=== PATIENT | female | born 1960 | race Caucasian/White ===

== ENCOUNTER 2016-03-25 09:24 | Inpatient (IN) | payer OTHER ==
[~2016-03-25] VITALS: Ht 157.5 cm; Wt 115.4 kg
[2016-03-25] MEDS ORDERED: HYDR-305 PO (09:43)
[2016-03-25] MEDS ORDERED: ASPI-556 PO (09:46)
[2016-03-25] MEDS ORDERED: AMOX250C4 PO (09:46)
[2016-03-25] MEDS ORDERED: ATOR20TA86 PO (09:46)
[2016-03-25] MEDS ORDERED: AMIO200T44 PO (09:46)
[2016-03-25] MEDS ORDERED: LEVO125 PO (09:46)
[2016-03-25] MEDS ORDERED: INDO50 PO (09:46)
[2016-03-25] MEDS ORDERED: ALBU8HFA IH (09:52)
[2016-03-25] MEDS ORDERED: CLOP75 PO (09:52)
[2016-03-25] MEDS ORDERED: FURO40I IM (09:52)
[2016-03-25] MEDS ORDERED: ALLO300 PO (09:52)
[2016-03-25] MEDS ORDERED: TRIA0.252 PO (09:52)
[2016-03-25] MEDS ORDERED: ISOS30TA6 PO (09:52)
[2016-03-25] MEDS ORDERED: RANI150T7 PO (09:52)
[2016-03-25] MEDS ORDERED: CARV25 PO (09:52)
[2016-03-25] MEDS ORDERED: HYDR50 PO (09:52)
[2016-03-25] MEDS ORDERED: OMEP20 PO (09:52)
[2016-03-25] MEDS ORDERED: DOXY100C PO (09:52)
[2016-03-25] MEDS ORDERED: GLIP5 PO (09:52)
[2016-03-25] MEDS ORDERED: KDUR10 PO (09:52)
[2016-03-25] MEDS ORDERED: FUROSEMIDE 40 MG/4 ML VIAL IVP ONE (10:15)
[2016-03-25 10:33] LABS: BASOPHILS % (AUTO) 0.1 % (0.0-2.0); EOSINOPHILS % (AUTO) 0.8 % (1.0-6.0); HEMATOCRIT 45.8 % (36-46); HEMOGLOBIN 14.2 g/dL (12.0-16.0); LYMPHOCYTES # (AUTO) 1.4 K/uL (1.0-4.8); LYMPHOCYTES % (AUTO) 12.3 % (22.0-44.0); MEAN CORPUSCULAR HEMOGLOBIN 26.9 pg (26.0-34.0); MEAN CORPUSCULAR VOLUME 87 fL (80-100); MONOCYTES # (AUTO) 1.2 K/uL (0.1-1.0); MONOCYTES % (AUTO) 10.1 % (2.0-9.0); NEUTROPHILS # (AUTO) 8.9 K/uL (1.8-7.7); NEUTROPHILS % (AUTO) 76.7 % (40.0-70.0); PLATELET COUNT (AUTO) 245 K/uL (150-450); RED BLOOD CELL COUNT(AUTO) 5.28 MIL/uL (4.00-5.20); RED CELL DISTRIBUTION WIDTH 20.4 % (11.5-14.5); WHITE BLOOD COUNT (AUTO) 11.6 K/uL (4.5-11.0)
[2016-03-25 10:42] LABS: ANION GAP 9 mmol/L (8-16); CALCIUM, TOTAL 8.8 mg/dL (8.8-10.5); CARBON DIOXIDE 30 mmol/L (22-29); CHLORIDE 105 mmol/L (98-107); CREATININE 1.06 mg/dL (0.60-1.30); GLOMERULAR FILTR. RATE CALC 54 mL/min (>60); POTASSIUM 3.9 mmol/L (3.5-5.1); PROTHROMBIN TIME 10.6 SEC (9.4-11.6); SODIUM SERUM 144 mmol/L (136-145); UREA NITROGEN, BLOOD 38 mg/dL (7-18)
[2016-03-25 10:47] LABS: APPEARANCE,URINE CLEAR (CLEAR); GLUCOSE, URINE (UA) NEGATIVE (NEGATIVE); KETONES,URINE NEGATIVE (NEGATIVE); LEUKOCYTE ESTERASE ,URINE NEGATIVE (NEGATIVE); OCCULT BLOOD,URINE NEGATIVE (NEGATIVE); PROTEIN,URINE NEGATIVE (NEGATIVE)
[2016-03-25 10:49] LABS: ALANINE AMINOTRANSFERASE 63 U/L (12-78); ALBUMIN 3.1 g/dL (3.4-5.0); ASPARTATE AMINOTRANSFERASE 33 U/L (15-37); BILIRUBIN,TOTAL 0.5 mg/dL (0.1-1.0); CREATINE KINASE, TOTAL 40 U/L (26-192); TOTAL PROTEIN, SERUM 6.1 g/dL (6.4-8.2)
[2016-03-25 10:49] LABS: ADD UA MICROSCOPIC NO
[2016-03-25 11:03] LABS: B-TYPE NATRIURETIC PEPTIDE 1800 pg/mL (0-100)
[2016-03-25] MEDS ORDERED: MethylPREDNISolone SOD SUCC 125 MG/2 ML VIAL IVP ONE (11:15)
[2016-03-25] MEDS ORDERED: AMIODARONE HCL 200 MG TABLET PO ONE ×2 (12:15→21:15)
[2016-03-25] MEDS ORDERED: HYDROCODONE/ACETAMINOPHEN 5-325 MG TABLET PO ONE (12:45)
[2016-03-25] MEDS ORDERED: MONT10TA21 PO (16:07)
[2016-03-25] MEDS ORDERED: SIMV-261 PO (16:07)
[2016-03-25 16:09] VITALS: BP 156/113
[2016-03-25] MEDS ORDERED: FURO40 PO (17:12)
[2016-03-25] MEDS ORDERED: ONDANSETRON HCL 4 MG/2 ML VIAL IVP PRN (18:45)
[2016-03-25] MEDS ORDERED: ACETAMINOPHEN 325 MG TABLET PO PRN (18:45)
[2016-03-25] MEDS ORDERED: DIGOXIN 250 MCG/ML 2 ML AMP IVP ONE (18:45)
[2016-03-25] MEDS ORDERED: DEXTROSE 50%-WATER 25 GM/50 ML SYRINGE IVP PRN (18:45)
[2016-03-25] MEDS: OxyCODONE HCL/ACETAMINOPHEN 5-325 MG TABLET PO PRN ×2 (19:15→23:16)
[2016-03-25 19:22] VITALS: BP 139/94
[2016-03-25] MEDS: ALBUTEROL SULFATE HFA 90 MCG/PUFF 8 GM INHALER IH SCH ×2 (20:10→23:16)
[2016-03-25 20:31] LABS: GLUCOSE,POINT OF CARE 260 MG/DL (70-110)
[2016-03-25 21:15] VITALS: BP 125/97
[2016-03-25] MEDS: CARVEDILOL 25 MG TABLET PO SCH (21:16)
[2016-03-25] MEDS: FUROSEMIDE 40 MG/4 ML VIAL IVP SCH (21:16)
[2016-03-25] MEDS: MONTELUKAST SODIUM 10 MG TABLET PO SCH (21:17)
[2016-03-25] MEDS: ATORVASTATIN CALCIUM 20 MG TABLET PO SCH (21:17)
[2016-03-25] MEDS: INSULIN ASPART 100 UNITS/ML SQ PRN (21:25)
[2016-03-25 22:03] VITALS: BP 157/98
[2016-03-25] MEDS: HydrALAZINE HCL 50 MG TABLET PO SCH (22:04)
[2016-03-25] MEDS: HEPARIN SODIUM,PORCINE 5,000 UNITS/ML VIAL SQ SCH (23:16)
[2016-03-26] VITALS (10 sets, daily range): BP systolic 101–158; BP diastolic 60–103
[2016-03-26] MEDS: ZOLPIDEM TARTRATE 5 MG TABLET PO PRN ×2 (00:54→23:43)
[2016-03-26] MEDS: ALBUTEROL SULFATE HFA 90 MCG/PUFF 8 GM INHALER IH SCH ×4 (06:15→23:22)
[2016-03-26] MEDS: LEVOTHYROXINE SODIUM 50 MCG TABLET PO SCH (06:15)
[2016-03-26 06:26] LABS: GLUCOSE COMMENT 1 Received Meds; GLUCOSE,POINT OF CARE 163 MG/DL (70-110)
[2016-03-26] MEDS: GlipiZIDE 5 MG TABLET PO SCH (06:46)
[2016-03-26] MEDS: INSULIN ASPART 100 UNITS/ML SQ PRN ×3 (06:47→22:29)
[2016-03-26] MEDS: HydrALAZINE HCL 50 MG TABLET PO SCH ×3 (08:15→22:19)
[2016-03-26] MEDS: HEPARIN SODIUM,PORCINE 5,000 UNITS/ML VIAL SQ SCH ×3 (08:15→23:22)
[2016-03-26] MEDS: ASPIRIN 81 MG EC TABLET PO SCH (08:15)
[2016-03-26] MEDS: CARVEDILOL 25 MG TABLET PO SCH ×2 (08:15→22:19)
[2016-03-26] MEDS: ISOSORBIDE MONONITRATE 60 MG ER TABLET PO SCH (08:15)
[2016-03-26] MEDS: FUROSEMIDE 40 MG/4 ML VIAL IVP SCH ×2 (08:15→22:19)
[2016-03-26] MEDS: PANTOPRAZOLE SODIUM 40 MG DR TABLET PO SCH (08:16)
[2016-03-26] MEDS: AMIODARONE HCL 200 MG TABLET PO SCH (08:16)
[2016-03-26] MEDS: CLOPIDOGREL BISULFATE 75 MG TABLET PO SCH (08:16)
[2016-03-26] MEDS: ALLOPURINOL 300 MG TABLET PO SCH (08:17)
[2016-03-26] MEDS: SIMVASTATIN 40 MG TABLET PO SCH (08:17)
[2016-03-26] MEDS: OxyCODONE HCL/ACETAMINOPHEN 5-325 MG TABLET PO PRN ×3 (10:44→22:20)
[2016-03-26 19:16] LABS: GLUCOSE,POINT OF CARE 130 MG/DL (70-110)
[2016-03-26] MEDS: ATORVASTATIN CALCIUM 20 MG TABLET PO SCH (22:19)
[2016-03-26] MEDS: MONTELUKAST SODIUM 10 MG TABLET PO SCH (22:19)
[2016-03-27] VITALS (11 sets, daily range): BP systolic 107–153; BP diastolic 57–105
[2016-03-27] MEDS: OxyCODONE HCL/ACETAMINOPHEN 5-325 MG TABLET PO PRN ×3 (02:40→10:31)
[2016-03-27] MEDS: LEVOTHYROXINE SODIUM 50 MCG TABLET PO SCH (06:39)
[2016-03-27] MEDS: ALBUTEROL SULFATE HFA 90 MCG/PUFF 8 GM INHALER IH SCH ×3 (06:39→18:32)
[2016-03-27] MEDS: GlipiZIDE 5 MG TABLET PO SCH (06:42)
[2016-03-27] MEDS: INSULIN ASPART 100 UNITS/ML SQ PRN ×4 (06:46→21:10)
[2016-03-27 07:06] LABS: BILIRUBIN,TOTAL 0.3 mg/dL (0.1-1.0); CALCIUM, TOTAL 8.5 mg/dL (8.8-10.5); CREATININE 1.49 mg/dL (0.60-1.30); TOTAL PROTEIN, SERUM 5.8 g/dL (6.4-8.2)
[2016-03-27 07:09] LABS: EOSINOPHILS # (AUTO) 0.14 K/uL (0.00-0.70); EOSINOPHILS % (AUTO) 1.36 % (1.0-6.0); HEMATOCRIT 42.6 % (36-46); HEMOGLOBIN 13.5 g/dL (12.0-16.0); LYMPHOCYTES # (AUTO) 1.5 K/uL (1.0-4.8); LYMPHOCYTES % (AUTO) 14.2 % (22.0-44.0); MEAN CORPUSCULAR HEMOGLOBIN 27.2 pg (26.0-34.0); MEAN CORPUSCULAR HGB CONC 31.8 G/dL (31.0-37.0); MEAN CORPUSCULAR VOLUME 86 fL (80-100); MONOCYTES # (AUTO) 0.7 K/uL (0.1-1.0); MONOCYTES % (AUTO) 6.2 % (2.0-9.0); NEUTROPHILS # (AUTO) 8.3 K/uL (1.8-7.7); NEUTROPHILS % (AUTO) 78.3 % (40.0-70.0); PLATELET COUNT (AUTO) 274 K/uL (150-450); RED BLOOD CELL COUNT(AUTO) 4.97 MIL/uL (4.00-5.20); RED CELL DISTRIBUTION WIDTH 20.2 % (11.5-14.5); WHITE BLOOD COUNT (AUTO) 10.6 K/uL (4.5-11.0)
[2016-03-27] MEDS: HEPARIN SODIUM,PORCINE 5,000 UNITS/ML VIAL SQ SCH ×2 (08:00→16:00)
[2016-03-27 09:11] LABS: RBC MORPHOLOGY COMMENT ABNORMAL RBC MORPH
[2016-03-27] MEDS: FUROSEMIDE 40 MG/4 ML VIAL IVP SCH (10:25)
[2016-03-27] MEDS: CARVEDILOL 25 MG TABLET PO SCH ×2 (10:26→21:18)
[2016-03-27] MEDS: HydrALAZINE HCL 50 MG TABLET PO SCH ×3 (10:26→21:18)
[2016-03-27] MEDS: ISOSORBIDE MONONITRATE 60 MG ER TABLET PO SCH (10:27)
[2016-03-27] MEDS: ASPIRIN 81 MG EC TABLET PO SCH (10:27)
[2016-03-27] MEDS: AMIODARONE HCL 200 MG TABLET PO SCH (10:27)
[2016-03-27] MEDS: PANTOPRAZOLE SODIUM 40 MG DR TABLET PO SCH (10:28)
[2016-03-27] MEDS: ALLOPURINOL 300 MG TABLET PO SCH (10:28)
[2016-03-27] MEDS: SIMVASTATIN 40 MG TABLET PO SCH (10:28)
[2016-03-27] MEDS: CLOPIDOGREL BISULFATE 75 MG TABLET PO SCH (10:28)
[2016-03-27] MEDS ORDERED: ISOS60TA4 PO (15:17)
[2016-03-27] MEDS ORDERED: LEVO175T9 PO (15:17)
[2016-03-27] MEDS: OxyCODONE HCL/ACETAMINOPHEN 10-325 MG TABLET PO PRN ×2 (16:22→21:20)
[2016-03-27] MEDS: ALBUTEROL SULFATE 2.5 MG/0.5 ML NEB SOLUTION NEB SCH ×2 (19:47→23:24)
[2016-03-27] MEDS: IPRATROPIUM BROMIDE 0.5 MG/2.5 ML NEB SOLUTION NEB SCH ×2 (19:47→23:24)
[2016-03-27 21:06] LABS: GLUCOSE,POINT OF CARE 95 MG/DL (70-110)
[2016-03-27 21:06] LABS: GLUCOSE,POINT OF CARE 101 MG/DL (70-110)
[2016-03-27] MEDS: ATORVASTATIN CALCIUM 20 MG TABLET PO SCH (21:18)
[2016-03-27] MEDS: MONTELUKAST SODIUM 10 MG TABLET PO SCH (21:18)
[2016-03-27] MEDS ORDERED: 0.9% SODIUM CHLORIDE 10 ML SYRINGE IVP PRN (23:30)
[2016-03-28] MEDS: HEPARIN SODIUM,PORCINE 5,000 UNITS/ML VIAL SQ SCH ×3 (00:39→18:14)
[2016-03-28] MEDS: ALBUTEROL SULFATE HFA 90 MCG/PUFF 8 GM INHALER IH SCH ×5 (00:39→23:21)
[2016-03-28] MEDS: ZOLPIDEM TARTRATE 5 MG TABLET PO PRN ×2 (00:40→21:32)
[2016-03-28] MEDS: OxyCODONE HCL/ACETAMINOPHEN 5-325 MG TABLET PO PRN (02:23)
[2016-03-28] MEDS: IPRATROPIUM BROMIDE 0.5 MG/2.5 ML NEB SOLUTION NEB SCH ×6 (03:04→23:30)
[2016-03-28] MEDS: ALBUTEROL SULFATE 2.5 MG/0.5 ML NEB SOLUTION NEB SCH ×6 (03:04→23:30)
[2016-03-28 04:11] VITALS: BP 130/69
[2016-03-28] MEDS: INSULIN ASPART 100 UNITS/ML SQ PRN (06:20)
[2016-03-28] MEDS: GlipiZIDE 5 MG TABLET PO SCH (06:46)
[2016-03-28] MEDS: LEVOTHYROXINE SODIUM 50 MCG TABLET PO SCH (06:47)
[2016-03-28 07:18] VITALS: BP 134/77
[2016-03-28] MEDS: OxyCODONE HCL/ACETAMINOPHEN 10-325 MG TABLET PO PRN ×4 (07:47→21:32)
[2016-03-28] MEDS: ASPIRIN 81 MG EC TABLET PO SCH (07:48)
[2016-03-28] MEDS: CLOPIDOGREL BISULFATE 75 MG TABLET PO SCH (07:48)
[2016-03-28] MEDS: AMIODARONE HCL 200 MG TABLET PO SCH (07:48)
[2016-03-28] MEDS: PANTOPRAZOLE SODIUM 40 MG DR TABLET PO SCH (07:48)
[2016-03-28] MEDS: FUROSEMIDE 40 MG/4 ML VIAL IVP SCH (07:48)
[2016-03-28] MEDS: ALLOPURINOL 300 MG TABLET PO SCH (07:48)
[2016-03-28] MEDS: CARVEDILOL 25 MG TABLET PO SCH ×2 (07:48→20:08)
[2016-03-28] MEDS: HydrALAZINE HCL 50 MG TABLET PO SCH ×3 (07:48→20:08)
[2016-03-28 08:37] LABS: GLUCOSE,POINT OF CARE 72 MG/DL (70-110)
[2016-03-28 08:37] LABS: GLUCOSE,POINT OF CARE 96 MG/DL (70-110)
[2016-03-28 08:37] LABS: GLUCOSE,POINT OF CARE 92 MG/DL (70-110)
[2016-03-28 08:38] LABS: GLUCOSE,POINT OF CARE 110 MG/DL (70-110)
[2016-03-28 08:38] LABS: GLUCOSE,POINT OF CARE 126 MG/DL (70-110)
[2016-03-28 08:38] LABS: GLUCOSE,POINT OF CARE 82 MG/DL (70-110)
[2016-03-28 08:44] LABS: BILIRUBIN,TOTAL 0.2 mg/dL (0.1-1.0); CALCIUM, TOTAL 8.5 mg/dL (8.8-10.5); CREATININE 1.51 mg/dL (0.60-1.30); POTASSIUM 4.4 mmol/L (3.5-5.1); TOTAL PROTEIN, SERUM 5.6 g/dL (6.4-8.2)
[2016-03-28 11:15] VITALS: BP 120/68
[2016-03-28] MEDS: ISOSORBIDE MONONITRATE 60 MG ER TABLET PO SCH (11:56)
[2016-03-28 12:01] LABS: GLUCOSE,POINT OF CARE 72 MG/DL (70-110)
[2016-03-28 15:10] VITALS: BP 122/72
[2016-03-28] MEDS: SIMVASTATIN 40 MG TABLET PO SCH (18:13)
[2016-03-28 19:58] VITALS: BP 133/89
[2016-03-28] MEDS: ATORVASTATIN CALCIUM 20 MG TABLET PO SCH (20:08)
[2016-03-28] MEDS: MONTELUKAST SODIUM 10 MG TABLET PO SCH (21:32)
[2016-03-28 23:55] VITALS: BP 140/70
[2016-03-29] VITALS (7 sets, daily range): BP systolic 114–168; BP diastolic 68–98
[2016-03-29] MEDS: OxyCODONE HCL/ACETAMINOPHEN 10-325 MG TABLET PO PRN ×4 (02:24→20:59)
[2016-03-29] MEDS: ALBUTEROL SULFATE 2.5 MG/0.5 ML NEB SOLUTION NEB SCH (02:58)
[2016-03-29] MEDS: IPRATROPIUM BROMIDE 0.5 MG/2.5 ML NEB SOLUTION NEB SCH ×7 (02:58→23:23)
[2016-03-29] MEDS: ALBUTEROL SULFATE HFA 90 MCG/PUFF 8 GM INHALER IH SCH ×4 (05:51→23:35)
[2016-03-29] MEDS: LEVOTHYROXINE SODIUM 50 MCG TABLET PO SCH (05:52)
[2016-03-29] MEDS: GlipiZIDE 5 MG TABLET PO SCH (05:52)
[2016-03-29 07:56] LABS: CREATININE 1.28 mg/dL (0.60-1.30); POTASSIUM 4.2 mmol/L (3.5-5.1)
[2016-03-29] MEDS: FUROSEMIDE 40 MG/4 ML VIAL IVP SCH (09:03)
[2016-03-29] MEDS: HydrALAZINE HCL 50 MG TABLET PO SCH ×3 (09:03→20:59)
[2016-03-29] MEDS: SIMVASTATIN 40 MG TABLET PO SCH (09:03)
[2016-03-29] MEDS: HEPARIN SODIUM,PORCINE 5,000 UNITS/ML VIAL SQ SCH ×4 (09:03→23:35)
[2016-03-29] MEDS: PANTOPRAZOLE SODIUM 40 MG DR TABLET PO SCH (09:04)
[2016-03-29] MEDS: AMIODARONE HCL 200 MG TABLET PO SCH ×2 (09:04→20:59)
[2016-03-29] MEDS: CARVEDILOL 25 MG TABLET PO SCH ×2 (09:04→20:59)
[2016-03-29] MEDS: ALLOPURINOL 300 MG TABLET PO SCH (09:04)
[2016-03-29] MEDS: ISOSORBIDE MONONITRATE 60 MG ER TABLET PO SCH (09:04)
[2016-03-29] MEDS: CLOPIDOGREL BISULFATE 75 MG TABLET PO SCH (09:04)
[2016-03-29] MEDS: INSULIN ASPART 100 UNITS/ML SQ PRN (12:20)
[2016-03-29] MEDS: APIXABAN 2.5 MG TABLET PO SCH ×2 (12:22→20:59)
[2016-03-29 17:31] LABS: GLUCOSE,POINT OF CARE 71 MG/DL (70-110)
[2016-03-29 17:36] LABS: GLUCOSE,POINT OF CARE 92 MG/DL (70-110)
[2016-03-29 17:37] LABS: GLUCOSE,POINT OF CARE 102 MG/DL (70-110)
[2016-03-29] MEDS: OxyCODONE HCL/ACETAMINOPHEN 5-325 MG TABLET PO PRN (18:31)
[2016-03-29] MEDS: ATORVASTATIN CALCIUM 20 MG TABLET PO SCH (20:59)
[2016-03-29] MEDS: MONTELUKAST SODIUM 10 MG TABLET PO SCH (20:59)
[2016-03-29] MEDS: ZOLPIDEM TARTRATE 5 MG TABLET PO PRN (23:37)
[2016-03-30 00:10] VITALS: BP 132/86
[2016-03-30 02:11] LABS: GLUCOSE,POINT OF CARE 121 MG/DL (70-110)
[2016-03-30 02:11] LABS: GLUCOSE,POINT OF CARE 72 MG/DL (70-110)
[2016-03-30 02:11] LABS: GLUCOSE COMMENT 1 Received Meds; GLUCOSE,POINT OF CARE 143 MG/DL (70-110)
[2016-03-30 02:11] LABS: GLUCOSE,POINT OF CARE 66 MG/DL (70-110)
[2016-03-30] MEDS: IPRATROPIUM BROMIDE 0.5 MG/2.5 ML NEB SOLUTION NEB SCH ×6 (02:31→23:00)
[2016-03-30] MEDS: OxyCODONE HCL/ACETAMINOPHEN 10-325 MG TABLET PO PRN ×3 (03:40→16:25)
[2016-03-30 05:00] VITALS: BP 133/78
[2016-03-30] MEDS: GlipiZIDE 5 MG TABLET PO SCH (06:00)
[2016-03-30] MEDS: ALBUTEROL SULFATE HFA 90 MCG/PUFF 8 GM INHALER IH SCH ×2 (06:00→11:43)
[2016-03-30] MEDS: LEVOTHYROXINE SODIUM 50 MCG TABLET PO SCH (06:03)
[2016-03-30 06:41] LABS: BASOPHILS # (AUTO) 0.04 K/uL (0.00-0.20); BASOPHILS % (AUTO) 0.5 % (0.0-2.0); EOSINOPHILS # (AUTO) 0.22 K/uL (0.00-0.70); EOSINOPHILS % (AUTO) 2.49 % (1.0-6.0); HEMATOCRIT 43.3 % (36-46); HEMOGLOBIN 13.5 g/dL (12.0-16.0); LYMPHOCYTES # (AUTO) 1.3 K/uL (1.0-4.8); LYMPHOCYTES % (AUTO) 15.2 % (22.0-44.0); MEAN CORPUSCULAR HGB CONC 31.2 G/dL (31.0-37.0); MEAN CORPUSCULAR VOLUME 87 fL (80-100); MONOCYTES # (AUTO) 0.9 K/uL (0.1-1.0); MONOCYTES % (AUTO) 10.6 % (2.0-9.0); NEUTROPHILS # (AUTO) 6.2 K/uL (1.8-7.7); NEUTROPHILS % (AUTO) 71.3 % (40.0-70.0); PLATELET COUNT (AUTO) 217 K/uL (150-450); RED CELL DISTRIBUTION WIDTH 20.6 % (11.5-14.5); WHITE BLOOD COUNT (AUTO) 8.7 K/uL (4.5-11.0)
[2016-03-30 06:46] LABS: GLUCOSE,POINT OF CARE 101 MG/DL (70-110)
[2016-03-30 07:15] LABS: ALBUMIN 2.9 g/dL (3.4-5.0); BILIRUBIN,TOTAL 0.2 mg/dL (0.1-1.0); CREATININE 1.57 mg/dL (0.60-1.30); MAGNESIUM 2.1 mg/dL (1.80-2.40); POTASSIUM 4.3 mmol/L (3.5-5.1); TOTAL PROTEIN, SERUM 5.9 g/dL (6.4-8.2)
[2016-03-30 08:26] VITALS: BP 137/84
[2016-03-30] MEDS: HydrALAZINE HCL 50 MG TABLET PO SCH ×2 (08:36→16:23)
[2016-03-30] MEDS: PANTOPRAZOLE SODIUM 40 MG DR TABLET PO SCH (08:36)
[2016-03-30] MEDS: HEPARIN SODIUM,PORCINE 5,000 UNITS/ML VIAL SQ SCH ×2 (08:36→16:00)
[2016-03-30] MEDS: APIXABAN 2.5 MG TABLET PO SCH (08:36)
[2016-03-30] MEDS: FUROSEMIDE 40 MG/4 ML VIAL IVP SCH (08:36)
[2016-03-30] MEDS: ALLOPURINOL 300 MG TABLET PO SCH (08:36)
[2016-03-30] MEDS: CARVEDILOL 25 MG TABLET PO SCH (08:36)
[2016-03-30] MEDS: AMIODARONE HCL 200 MG TABLET PO SCH (08:36)
[2016-03-30] MEDS: ISOSORBIDE MONONITRATE 60 MG ER TABLET PO SCH (08:36)
[2016-03-30] MEDS: SIMVASTATIN 40 MG TABLET PO SCH (08:36)
[2016-03-30] MEDS: CLOPIDOGREL BISULFATE 75 MG TABLET PO SCH (08:36)
[2016-03-30 11:02] LABS: RBC MORPHOLOGY COMMENT ABNORMAL RBC MORPH
[2016-03-30 11:22] VITALS: BP 108/66
[2016-03-30] MEDS ORDERED: AMIO200T44 PO (13:19)
[2016-03-30] MEDS ORDERED: APIX2.5T PO (13:26)
[2016-03-30] MEDS ORDERED: CEPH-582 PO (13:28)
[2016-03-30 15:06] LABS: GLUCOSE,POINT OF CARE 79 MG/DL (70-110)
[2016-03-30 16:19] VITALS: BP 129/75
[2016-03-31] MEDS: IPRATROPIUM BROMIDE 0.5 MG/2.5 ML NEB SOLUTION NEB SCH (03:00)
== END 2016-03-30 18:30 | disposition home or self-care (01) | DRG 194 ==
LOC: EMS 09:24 → 5S 15:05
PROVIDERS: ADMIT Hospitalist; ATTEND Hospitalist
DX: I11.0 Hypertensive heart disease with heart failure (principal); N17.9 Acute kidney failure, unspecified; I42.9 Cardiomyopathy, unspecified; Z68.42 Body mass index [BMI] 45.0-49.9, adult; E11.42 Type 2 diabetes mellitus with diabetic polyneuropathy; I50.23 Acute on chronic systolic (congestive) heart failure; J44.9 Chronic obstructive pulmonary disease, unspecified; I25.10 Atherosclerotic heart disease of native coronary artery without angina pectoris; E78.5 Hyperlipidemia, unspecified; E03.9 Hypothyroidism, unspecified; E66.01 Morbid (severe) obesity due to excess calories; J45.909 Unspecified asthma, uncomplicated; I48.0 Paroxysmal atrial fibrillation; M19.90 Unspecified osteoarthritis, unspecified site; F17.210 Nicotine dependence, cigarettes, uncomplicated; Z88.8 Allergy status to other drugs, medicaments and biological substances; Z79.899 Other long term (current) drug therapy; Z79.02 Long term (current) use of antithrombotics/antiplatelets; Z79.82 Long term (current) use of aspirin; Z79.891 Long term (current) use of opiate analgesic; Z95.5 Presence of coronary angioplasty implant and graft; Z91.14 Patient's other noncompliance with medication regimen
CPT/HCPCS: 73521; 73700; 82962; 83735; 87081; 93005; 93306; 93970; 94640; 96374; 96375; 99285; J1160; J1644; J1940; J2930; J3535

== ENCOUNTER 2016-04-02 11:09 | Inpatient (IN) | payer OTHER ==
[~2016-04-02] VITALS: Ht 167.6 cm; Wt 115.2 kg
[~2016-04-02 11:09] MED LIST: ALBU8HFA IH; ALLO300 PO; AMIO200T44 PO; APIX2.5T PO; ATOR20TA86 PO; CARV25 PO; CEPH-582 PO; CLOP75 PO; FURO40 PO; GLIP5 PO; HYDR-305 PO; HYDR50 PO; INDO50 PO; ISOS60TA4 PO; KDUR10 PO; LEVO175T9 PO; MONT10TA21 PO; OMEP20 PO; RANI150T7 PO; SIMV-261 PO; TRIA0.252 PO
[2016-04-02 11:26] LABS: GLUCOSE,POINT OF CARE 89 MG/DL (70-110)
[2016-04-02 12:36] LABS: BASOPHILS % (AUTO) 0.3 % (0.0-2.0); EOSINOPHILS % (AUTO) 1.5 % (1.0-6.0); LYMPHOCYTES # (AUTO) 1.6 K/uL (1.0-4.8); LYMPHOCYTES % (AUTO) 14.1 % (22.0-44.0); MEAN CORPUSCULAR HEMOGLOBIN 26.9 pg (26.0-34.0); MEAN CORPUSCULAR HGB CONC 30.9 G/dL (31.0-37.0); MEAN CORPUSCULAR VOLUME 87 fL (80-100); MONOCYTES # (AUTO) 1.6 K/uL (0.1-1.0); MONOCYTES % (AUTO) 14.5 % (2.0-9.0); NEUTROPHILS # (AUTO) 7.7 K/uL (1.8-7.7); NEUTROPHILS % (AUTO) 69.6 % (40.0-70.0); PLATELET COUNT (AUTO) 218 K/uL (150-450); RED BLOOD CELL COUNT(AUTO) 4.84 MIL/uL (4.00-5.20); RED CELL DISTRIBUTION WIDTH 20.9 % (11.5-14.5); WHITE BLOOD COUNT (AUTO) 11.1 K/uL (4.5-11.0)
[2016-04-02] MEDS ORDERED: FUROSEMIDE 40 MG/4 ML VIAL IVP ONE (12:45)
[2016-04-02] MEDS ORDERED: 0.9% SODIUM CHLORIDE 5 ML NEB SOLUTION NEB ONE ×3 (12:45→13:41)
[2016-04-02] MEDS ORDERED: MethylPREDNISolone SOD SUCC 125 MG/2 ML VIAL IVP ONE (12:45)
[2016-04-02] MEDS ORDERED: ALBUTEROL SULFATE 2.5 MG/0.5 ML NEB SOLUTION NEB ONE (12:45)
[2016-04-02] MEDS ORDERED: IPRATROPIUM BROMIDE 0.5 MG/2.5 ML NEB SOLUTION NEB ONE ×2 (12:45→13:30)
[2016-04-02 12:47] LABS: ANION GAP 3 mmol/L (8-16); CALCIUM, TOTAL 8.6 mg/dL (8.8-10.5); CARBON DIOXIDE 35 mmol/L (22-29); CHLORIDE 102 mmol/L (98-107); CREATININE 1.46 mg/dL (0.60-1.30); GLOMERULAR FILTR. RATE CALC 37 mL/min (>60); POTASSIUM 4.1 mmol/L (3.5-5.1); PROTHROMBIN TIME 10.1 SEC (9.4-11.6); SODIUM SERUM 140 mmol/L (136-145); UREA NITROGEN, BLOOD 29 mg/dL (7-18)
[2016-04-02 12:52] LABS: RBC MORPHOLOGY COMMENT ABNORMAL RBC MORPH
[2016-04-02 12:57] LABS: B-TYPE NATRIURETIC PEPTIDE 1100 pg/mL (0-100)
[2016-04-02 13:00] LABS: ALANINE AMINOTRANSFERASE 57 U/L (12-78); ASPARTATE AMINOTRANSFERASE 44 U/L (15-37); BILIRUBIN,TOTAL 0.3 mg/dL (0.1-1.0); CREATINE KINASE, TOTAL 35 U/L (26-192); TOTAL PROTEIN, SERUM 6.3 g/dL (6.4-8.2)
[2016-04-02] MEDS ORDERED: ONDANSETRON HCL 4 MG/2 ML VIAL IVP ONE (13:30)
[2016-04-02] MEDS ORDERED: ALBUTEROL SULFATE 5 MG/ML 20 ML NEB SOLN [BULK] NEB ONE (13:30)
[2016-04-02] MEDS ORDERED: MORPHINE SULFATE 4 MG/ML SYRINGE IVP ONE (13:30)
[2016-04-02] MEDS ORDERED: ONDANSETRON HCL 4 MG/2 ML VIAL IVP PRN (13:45)
[2016-04-02] MEDS ORDERED: ACETAMINOPHEN 325 MG TABLET PO PRN (13:45)
[2016-04-02] MEDS ORDERED: DEXTROSE 50%-WATER 25 GM/50 ML SYRINGE IVP PRN (13:45)
[2016-04-02 14:03] LABS: APPEARANCE,URINE CLEAR (CLEAR); GLUCOSE, URINE (UA) NEGATIVE (NEGATIVE); KETONES,URINE NEGATIVE (NEGATIVE); LEUKOCYTE ESTERASE ,URINE NEGATIVE (NEGATIVE); OCCULT BLOOD,URINE NEGATIVE (NEGATIVE); PH,URINE 7.5 (5.0-8.0); PROTEIN,URINE TRACE (NEGATIVE)
[2016-04-02 14:06] LABS: ADD UA MICROSCOPIC NO
[2016-04-02 15:49] VITALS: BP 147/75
[2016-04-02] MEDS: INDOMETHACIN 50 MG CAPSULE PO SCH ×2 (17:50→21:54)
[2016-04-02] MEDS: OxyCODONE HCL/ACETAMINOPHEN 5-325 MG TABLET PO PRN ×2 (17:50→21:54)
[2016-04-02] MEDS: HydrALAZINE HCL 50 MG TABLET PO SCH ×2 (17:50→21:54)
[2016-04-02] MEDS: INSULIN ASPART 100 UNITS/ML SQ PRN ×2 (17:58→22:01)
[2016-04-02 19:17] VITALS: BP 150/88
[2016-04-02] MEDS ORDERED: ATORVASTATIN CALCIUM 20 MG TABLET PO SCH (21:00)
[2016-04-02] MEDS: CARVEDILOL 25 MG TABLET PO SCH (21:54)
[2016-04-02] MEDS: AMIODARONE HCL 200 MG TABLET PO SCH (21:54)
[2016-04-02] MEDS: ZOLPIDEM TARTRATE 10 MG TABLET PO PRN (21:54)
[2016-04-02] MEDS: POTASSIUM CHLORIDE 10 MEQ ER TABLET PO SCH (21:54)
[2016-04-02] MEDS: FUROSEMIDE 40 MG/4 ML VIAL IVP SCH (21:54)
[2016-04-02] MEDS: MONTELUKAST SODIUM 10 MG TABLET PO SCH (21:54)
[2016-04-02] MEDS: APIXABAN 2.5 MG TABLET PO SCH (21:54)
[2016-04-02 23:55] VITALS: BP 160/86
[2016-04-03] MEDS: OxyCODONE HCL/ACETAMINOPHEN 5-325 MG TABLET PO PRN ×5 (03:09→22:53)
[2016-04-03 04:57] VITALS: BP 130/83
[2016-04-03] MEDS: GlipiZIDE 5 MG TABLET PO SCH (06:00)
[2016-04-03] MEDS: LEVOTHYROXINE SODIUM 50 MCG TABLET PO SCH (06:02)
[2016-04-03] MEDS: INSULIN ASPART 100 UNITS/ML SQ PRN ×2 (06:14→12:16)
[2016-04-03 07:15] VITALS: BP 138/67
[2016-04-03] MEDS: FUROSEMIDE 40 MG/4 ML VIAL IVP SCH ×2 (08:32→20:35)
[2016-04-03] MEDS: APIXABAN 2.5 MG TABLET PO SCH ×2 (08:32→20:34)
[2016-04-03] MEDS: PANTOPRAZOLE SODIUM 40 MG DR TABLET PO SCH (08:32)
[2016-04-03] MEDS: AMIODARONE HCL 200 MG TABLET PO SCH ×2 (08:32→20:34)
[2016-04-03] MEDS: HydrALAZINE HCL 50 MG TABLET PO SCH ×3 (08:33→20:33)
[2016-04-03] MEDS: INDOMETHACIN 50 MG CAPSULE PO SCH ×3 (08:33→20:34)
[2016-04-03] MEDS: ALLOPURINOL 300 MG TABLET PO SCH (08:34)
[2016-04-03] MEDS: ISOSORBIDE MONONITRATE 60 MG ER TABLET PO SCH (08:34)
[2016-04-03] MEDS: CARVEDILOL 25 MG TABLET PO SCH ×2 (08:34→20:34)
[2016-04-03] MEDS: POTASSIUM CHLORIDE 10 MEQ ER TABLET PO SCH ×2 (08:34→20:34)
[2016-04-03] MEDS: CLOPIDOGREL BISULFATE 75 MG TABLET PO SCH (08:34)
[2016-04-03] MEDS: SIMVASTATIN 40 MG TABLET PO SCH (09:00)
[2016-04-03] MEDS ORDERED: TRIAZOLAM 0.25 MG PO SCH (09:00)
[2016-04-03 12:21] VITALS: BP 111/45
[2016-04-03 16:15] VITALS: BP 109/63
[2016-04-03] MEDS ORDERED: 0.9% SODIUM CHLORIDE 5 ML NEB SOLUTION NEB ONE (19:05)
[2016-04-03] MEDS: ALBUTEROL SULFATE 2.5 MG/0.5 ML NEB SOLUTION NEB PRN (19:08)
[2016-04-03 19:33] VITALS: BP 127/67
[2016-04-03] MEDS: MONTELUKAST SODIUM 10 MG TABLET PO SCH (20:34)
[2016-04-03] MEDS: ZOLPIDEM TARTRATE 10 MG TABLET PO PRN (22:52)
[2016-04-03 23:53] VITALS: BP 149/98
[2016-04-04 04:19] VITALS: BP 122/70
[2016-04-04] MEDS: GlipiZIDE 5 MG TABLET PO SCH (05:38)
[2016-04-04] MEDS: LEVOTHYROXINE SODIUM 50 MCG TABLET PO SCH (05:40)
[2016-04-04 06:57] LABS: GLUCOSE COMMENT 1 Received Meds; GLUCOSE,POINT OF CARE 225 MG/DL (70-110)
[2016-04-04 06:57] LABS: GLUCOSE COMMENT 1 Received Meds; GLUCOSE,POINT OF CARE 179 MG/DL (70-110)
[2016-04-04 06:57] LABS: GLUCOSE COMMENT 1 Received Meds; GLUCOSE,POINT OF CARE 360 MG/DL (70-110)
[2016-04-04 07:01] LABS: GLUCOSE,POINT OF CARE 93 MG/DL (70-110)
[2016-04-04 07:01] LABS: GLUCOSE,POINT OF CARE 101 MG/DL (70-110)
[2016-04-04 07:01] LABS: GLUCOSE,POINT OF CARE 118 MG/DL (70-110)
[2016-04-04 07:18] VITALS: BP 152/101
[2016-04-04 07:32] LABS: BASOPHILS % (AUTO) 0.1 % (0.0-2.0); EOSINOPHILS % (AUTO) 0.3 % (1.0-6.0); HEMATOCRIT 40.6 % (36-46); HEMOGLOBIN 12.6 g/dL (12.0-16.0); LYMPHOCYTES % (AUTO) 14.4 % (22.0-44.0); MEAN CORPUSCULAR HEMOGLOBIN 27.2 pg (26.0-34.0); MEAN CORPUSCULAR HGB CONC 31.1 G/dL (31.0-37.0); MEAN CORPUSCULAR VOLUME 87 fL (80-100); MONOCYTES # (AUTO) 1.1 K/uL (0.1-1.0); MONOCYTES % (AUTO) 7.9 % (2.0-9.0); NEUTROPHILS # (AUTO) 10.7 K/uL (1.8-7.7); NEUTROPHILS % (AUTO) 77.3 % (40.0-70.0); PLATELET COUNT (AUTO) 247 K/uL (150-450); RED BLOOD CELL COUNT(AUTO) 4.65 MIL/uL (4.00-5.20); RED CELL DISTRIBUTION WIDTH 21.2 % (11.5-14.5); WHITE BLOOD COUNT (AUTO) 13.8 K/uL (4.5-11.0)
[2016-04-04] MEDS: OxyCODONE HCL/ACETAMINOPHEN 5-325 MG TABLET PO PRN ×4 (07:53→22:34)
[2016-04-04] MEDS: FUROSEMIDE 40 MG/4 ML VIAL IVP SCH (07:53)
[2016-04-04] MEDS: ISOSORBIDE MONONITRATE 60 MG ER TABLET PO SCH (07:54)
[2016-04-04] MEDS: ALLOPURINOL 300 MG TABLET PO SCH (07:54)
[2016-04-04] MEDS: AMIODARONE HCL 200 MG TABLET PO SCH ×2 (07:54→20:18)
[2016-04-04] MEDS: HydrALAZINE HCL 50 MG TABLET PO SCH ×3 (07:54→20:18)
[2016-04-04] MEDS: CLOPIDOGREL BISULFATE 75 MG TABLET PO SCH (07:54)
[2016-04-04] MEDS: INDOMETHACIN 50 MG CAPSULE PO SCH ×3 (07:54→20:19)
[2016-04-04] MEDS: PANTOPRAZOLE SODIUM 40 MG DR TABLET PO SCH (07:54)
[2016-04-04] MEDS: SIMVASTATIN 40 MG TABLET PO SCH (07:54)
[2016-04-04] MEDS: APIXABAN 2.5 MG TABLET PO SCH ×2 (07:54→20:18)
[2016-04-04] MEDS: POTASSIUM CHLORIDE 10 MEQ ER TABLET PO SCH ×2 (07:54→20:19)
[2016-04-04] MEDS: CARVEDILOL 25 MG TABLET PO SCH ×2 (07:54→20:19)
[2016-04-04 08:07] LABS: ALBUMIN 2.9 g/dL (3.4-5.0); BILIRUBIN,TOTAL 0.3 mg/dL (0.1-1.0); CALCIUM, TOTAL 8.9 mg/dL (8.8-10.5); CREATININE 2.13 mg/dL (0.60-1.30); POTASSIUM 5.6 mmol/L (3.5-5.1); TOTAL PROTEIN, SERUM 6.2 g/dL (6.4-8.2)
[2016-04-04 11:13] VITALS: BP 116/60
[2016-04-04] MEDS: NICOTINE 14 MG/24 HOUR PATCH TD SCH (13:30)
[2016-04-04 15:18] VITALS: BP 120/84
[2016-04-04 17:36] LABS: GLUCOSE COMMENT 1 Juice/Food/D50 Given; GLUCOSE,POINT OF CARE 72 MG/DL (70-110)
[2016-04-04 20:07] VITALS: BP 118/73
[2016-04-04] MEDS: MONTELUKAST SODIUM 10 MG TABLET PO SCH (20:18)
[2016-04-04] MEDS: ZOLPIDEM TARTRATE 10 MG TABLET PO PRN (22:34)
[2016-04-05 00:01] VITALS: BP 128/62
[2016-04-05 05:00] VITALS: BP 118/69
[2016-04-05] MEDS: OxyCODONE HCL/ACETAMINOPHEN 5-325 MG TABLET PO PRN ×4 (05:00→20:50)
[2016-04-05] MEDS: LEVOTHYROXINE SODIUM 50 MCG TABLET PO SCH (05:44)
[2016-04-05] MEDS: GlipiZIDE 5 MG TABLET PO SCH (05:46)
[2016-04-05 06:48] LABS: BASOPHILS % (AUTO) 0.2 % (0.0-2.0); EOSINOPHILS % (AUTO) 1.5 % (1.0-6.0); HEMATOCRIT 39.9 % (36-46); HEMOGLOBIN 11.8 g/dL (12.0-16.0); LYMPHOCYTES # (AUTO) 1.9 K/uL (1.0-4.8); LYMPHOCYTES % (AUTO) 20.7 % (22.0-44.0); MEAN CORPUSCULAR HEMOGLOBIN 25.8 pg (26.0-34.0); MEAN CORPUSCULAR HGB CONC 29.5 G/dL (31.0-37.0); MEAN CORPUSCULAR VOLUME 87 fL (80-100); MONOCYTES # (AUTO) 0.9 K/uL (0.1-1.0); NEUTROPHILS # (AUTO) 6.5 K/uL (1.8-7.7); NEUTROPHILS % (AUTO) 68.6 % (40.0-70.0); PLATELET COUNT (AUTO) 249 K/uL (150-450); RED BLOOD CELL COUNT(AUTO) 4.57 MIL/uL (4.00-5.20); RED CELL DISTRIBUTION WIDTH 20.6 % (11.5-14.5); WHITE BLOOD COUNT (AUTO) 9.4 K/uL (4.5-11.0)
[2016-04-05 07:03] LABS: ALBUMIN 2.8 g/dL (3.4-5.0); BILIRUBIN,TOTAL 0.3 mg/dL (0.1-1.0); CALCIUM, TOTAL 8.6 mg/dL (8.8-10.5); CREATININE 2.8 mg/dL (0.60-1.30); POTASSIUM 5.5 mmol/L (3.5-5.1); TOTAL PROTEIN, SERUM 5.9 g/dL (6.4-8.2)
[2016-04-05 07:07] VITALS: BP 114/78
[2016-04-05] MEDS: CARVEDILOL 25 MG TABLET PO SCH (08:00)
[2016-04-05] MEDS: ISOSORBIDE MONONITRATE 60 MG ER TABLET PO SCH (08:01)
[2016-04-05] MEDS: AMIODARONE HCL 200 MG TABLET PO SCH (08:01)
[2016-04-05] MEDS: POTASSIUM CHLORIDE 10 MEQ ER TABLET PO SCH (08:01)
[2016-04-05] MEDS: APIXABAN 2.5 MG TABLET PO SCH ×2 (08:01→20:50)
[2016-04-05] MEDS: CLOPIDOGREL BISULFATE 75 MG TABLET PO SCH (08:01)
[2016-04-05] MEDS: FUROSEMIDE 20 MG/2 ML VIAL IVP SCH (08:01)
[2016-04-05] MEDS: PANTOPRAZOLE SODIUM 40 MG DR TABLET PO SCH (08:01)
[2016-04-05] MEDS: HydrALAZINE HCL 50 MG TABLET PO SCH ×3 (08:01→20:50)
[2016-04-05] MEDS: SIMVASTATIN 40 MG TABLET PO SCH (08:01)
[2016-04-05] MEDS: INDOMETHACIN 50 MG CAPSULE PO SCH ×2 (08:02→15:12)
[2016-04-05] MEDS: NICOTINE 14 MG/24 HOUR PATCH TD SCH (08:02)
[2016-04-05] MEDS: ALLOPURINOL 300 MG TABLET PO SCH (08:02)
[2016-04-05] MEDS: ALBUTEROL SULFATE 2.5 MG/0.5 ML NEB SOLUTION NEB PRN (10:39)
[2016-04-05 11:27] LABS: RBC MORPHOLOGY COMMENT ABNORMAL RBC MORPH
[2016-04-05 11:30] VITALS: BP 122/66
[2016-04-05] MEDS ORDERED: 0.9% SODIUM CHLORIDE 5 ML NEB SOLUTION NEB ONE (13:39)
[2016-04-05 15:18] VITALS: BP 116/79
[2016-04-05 19:06] VITALS: BP 141/66
[2016-04-05 20:00] LABS: GLUCOSE COMMENT 1 Received Meds; GLUCOSE,POINT OF CARE 192 MG/DL (70-110)
[2016-04-05 20:07] LABS: GLUCOSE COMMENT 1 Juice/Food/D50 Given; GLUCOSE,POINT OF CARE 66 MG/DL (70-110)
[2016-04-05 20:07] LABS: GLUCOSE COMMENT 1 Received Meds; GLUCOSE,POINT OF CARE 142 MG/DL (70-110)
[2016-04-05 20:07] LABS: GLUCOSE,POINT OF CARE 91 MG/DL (70-110)
[2016-04-05 20:07] LABS: GLUCOSE,POINT OF CARE 115 MG/DL (70-110)
[2016-04-05 20:07] LABS: GLUCOSE,POINT OF CARE 136 MG/DL (70-110)
[2016-04-05] MEDS: CARVEDILOL 12.5 MG TABLET PO SCH (20:50)
[2016-04-05] MEDS: ZOLPIDEM TARTRATE 10 MG TABLET PO PRN (20:50)
[2016-04-05] MEDS: MONTELUKAST SODIUM 10 MG TABLET PO SCH (20:50)
[2016-04-05] MEDS: CALCIUM CARBONATE 500 MG CHEWABLE TABLET CHEW PRN (23:31)
[2016-04-06] VITALS (7 sets, daily range): BP systolic 90–151; BP diastolic 58–96
[2016-04-06] MEDS: OxyCODONE HCL/ACETAMINOPHEN 5-325 MG TABLET PO PRN ×5 (02:22→23:28)
[2016-04-06] MEDS: LEVOTHYROXINE SODIUM 50 MCG TABLET PO SCH (05:45)
[2016-04-06] MEDS: GlipiZIDE 5 MG TABLET PO SCH (05:45)
[2016-04-06 06:31] LABS: BASOPHILS % (AUTO) 0.3 % (0.0-2.0); EOSINOPHILS % (AUTO) 3.2 % (1.0-6.0); HEMATOCRIT 38.8 % (36-46); HEMOGLOBIN 12.1 g/dL (12.0-16.0); LYMPHOCYTES # (AUTO) 1.3 K/uL (1.0-4.8); LYMPHOCYTES % (AUTO) 14.3 % (22.0-44.0); MEAN CORPUSCULAR HGB CONC 31.1 G/dL (31.0-37.0); MEAN CORPUSCULAR VOLUME 87 fL (80-100); MONOCYTES # (AUTO) 0.8 K/uL (0.1-1.0); MONOCYTES % (AUTO) 8.8 % (2.0-9.0); NEUTROPHILS # (AUTO) 6.5 K/uL (1.8-7.7); NEUTROPHILS % (AUTO) 73.4 % (40.0-70.0); PLATELET COUNT (AUTO) 261 K/uL (150-450); RED BLOOD CELL COUNT(AUTO) 4.47 MIL/uL (4.00-5.20); WHITE BLOOD COUNT (AUTO) 8.9 K/uL (4.5-11.0)
[2016-04-06 06:55] LABS: RBC MORPHOLOGY COMMENT ABNORMAL RBC MORPH
[2016-04-06 07:01] LABS: ALBUMIN 2.7 g/dL (3.4-5.0); BILIRUBIN,TOTAL 0.2 mg/dL (0.1-1.0); CALCIUM, TOTAL 8.6 mg/dL (8.8-10.5); CREATININE 2.61 mg/dL (0.60-1.30); MAGNESIUM 2.4 mg/dL (1.80-2.40); PHOSPHORUS 5.3 mg/dL (2.5-4.9); POTASSIUM 5.4 mmol/L (3.5-5.1); TOTAL PROTEIN, SERUM 5.8 g/dL (6.4-8.2)
[2016-04-06] MEDS: NICOTINE 14 MG/24 HOUR PATCH TD SCH (09:00)
[2016-04-06] MEDS: CARVEDILOL 12.5 MG TABLET PO SCH ×2 (09:00→20:37)
[2016-04-06] MEDS ORDERED: SIMVASTATIN 40 MG TABLET PO SCH (09:00)
[2016-04-06] MEDS ORDERED: SODIUM POLYSTYRENE SULFONATE 15 GM/60 ML SUSPENSION BOTTLE PO ONE (09:30)
[2016-04-06] MEDS: ALBUTEROL SULFATE HFA 90 MCG/PUFF 8 GM INHALER IH PRN ×2 (09:50→23:28)
[2016-04-06] MEDS: FUROSEMIDE 20 MG/2 ML VIAL IVP SCH (09:50)
[2016-04-06] MEDS: ISOSORBIDE MONONITRATE 60 MG ER TABLET PO SCH (09:51)
[2016-04-06] MEDS: PANTOPRAZOLE SODIUM 40 MG DR TABLET PO SCH (09:51)
[2016-04-06] MEDS: ALLOPURINOL 300 MG TABLET PO SCH (09:51)
[2016-04-06] MEDS: APIXABAN 2.5 MG TABLET PO SCH ×2 (09:51→20:37)
[2016-04-06] MEDS: CLOPIDOGREL BISULFATE 75 MG TABLET PO SCH (09:51)
[2016-04-06] MEDS: CALCIUM ACETATE 667 MG CAPSULE PO SCH ×2 (12:11→17:52)
[2016-04-06 19:56] LABS: GLUCOSE COMMENT 1 Received Meds; GLUCOSE,POINT OF CARE 86 MG/DL (70-110)
[2016-04-06 19:56] LABS: GLUCOSE,POINT OF CARE 116 MG/DL (70-110)
[2016-04-06] MEDS: MONTELUKAST SODIUM 10 MG TABLET PO SCH (20:37)
[2016-04-06] MEDS: ZOLPIDEM TARTRATE 10 MG TABLET PO PRN (20:37)
[2016-04-06 21:43] LABS: APPEARANCE,URINE CLEAR (CLEAR); GLUCOSE, URINE (UA) NEGATIVE (NEGATIVE); KETONES,URINE NEGATIVE (NEGATIVE); LEUKOCYTE ESTERASE ,URINE NEGATIVE (NEGATIVE); OCCULT BLOOD,URINE NEGATIVE (NEGATIVE); PROTEIN,URINE NEGATIVE (NEGATIVE)
[2016-04-06 21:56] LABS: RBC,URINE 0-2 /HPF (0-2); SQUAMOUS EPITHELIAL CELL,UR Few /LPF (None Seen); WBC,URINE 0-2 /HPF (0-5)
[2016-04-07] VITALS (7 sets, daily range): BP systolic 98–143; BP diastolic 59–92
[2016-04-07] MEDS: OxyCODONE HCL/ACETAMINOPHEN 5-325 MG TABLET PO PRN ×5 (04:27→20:07)
[2016-04-07] MEDS: LEVOTHYROXINE SODIUM 50 MCG TABLET PO SCH (05:58)
[2016-04-07] MEDS: GlipiZIDE 5 MG TABLET PO SCH (05:58)
[2016-04-07 06:09] LABS: BASOPHILS # (AUTO) 0.02 K/uL (0.00-0.20); BASOPHILS % (AUTO) 0.3 % (0.0-2.0); EOSINOPHILS # (AUTO) 0.28 K/uL (0.00-0.70); EOSINOPHILS % (AUTO) 3.64 % (1.0-6.0); HEMATOCRIT 37.9 % (36-46); HEMOGLOBIN 11.9 g/dL (12.0-16.0); LYMPHOCYTES # (AUTO) 1.3 K/uL (1.0-4.8); MEAN CORPUSCULAR HEMOGLOBIN 26.8 pg (26.0-34.0); MEAN CORPUSCULAR HGB CONC 31.3 G/dL (31.0-37.0); MEAN CORPUSCULAR VOLUME 86 fL (80-100); MONOCYTES # (AUTO) 0.7 K/uL (0.1-1.0); MONOCYTES % (AUTO) 9.6 % (2.0-9.0); NEUTROPHILS # (AUTO) 5.4 K/uL (1.8-7.7); NEUTROPHILS % (AUTO) 69.5 % (40.0-70.0); PLATELET COUNT (AUTO) 291 K/uL (150-450); RED BLOOD CELL COUNT(AUTO) 4.43 MIL/uL (4.00-5.20); RED CELL DISTRIBUTION WIDTH 20.8 % (11.5-14.5); WHITE BLOOD COUNT (AUTO) 7.7 K/uL (4.5-11.0)
[2016-04-07 06:45] LABS: ALBUMIN 2.6 g/dL (3.4-5.0); BILIRUBIN,TOTAL 0.2 mg/dL (0.1-1.0); CALCIUM, TOTAL 8.5 mg/dL (8.8-10.5); CREATININE 1.91 mg/dL (0.60-1.30); MAGNESIUM 2.4 mg/dL (1.80-2.40); PHOSPHORUS 4.3 mg/dL (2.5-4.9); POTASSIUM 4.4 mmol/L (3.5-5.1); THYROID STIMULATING HORMONE 3.42 uIU/mL (0.36-3.74); TOTAL PROTEIN, SERUM 5.5 g/dL (6.4-8.2)
[2016-04-07 07:01] LABS: GLUCOSE,POINT OF CARE 128 MG/DL (70-110)
[2016-04-07 07:06] LABS: GLUCOSE,POINT OF CARE 85 MG/DL (70-110)
[2016-04-07 07:06] LABS: GLUCOSE COMMENT 1 Received Meds; GLUCOSE,POINT OF CARE 88 MG/DL (70-110)
[2016-04-07] MEDS: CALCIUM ACETATE 667 MG CAPSULE PO SCH ×3 (08:17→18:30)
[2016-04-07] MEDS: ALLOPURINOL 300 MG TABLET PO SCH (08:17)
[2016-04-07] MEDS: PANTOPRAZOLE SODIUM 40 MG DR TABLET PO SCH (08:17)
[2016-04-07] MEDS: APIXABAN 2.5 MG TABLET PO SCH ×2 (08:18→20:07)
[2016-04-07 08:26] LABS: RBC MORPHOLOGY COMMENT ABNORMAL RBC MORPH
[2016-04-07] MEDS: NICOTINE 14 MG/24 HOUR PATCH TD SCH (09:00)
[2016-04-07] MEDS: CARVEDILOL 12.5 MG TABLET PO SCH ×2 (10:35→20:07)
[2016-04-07] MEDS: CLOPIDOGREL BISULFATE 75 MG TABLET PO SCH (10:35)
[2016-04-07] MEDS: FUROSEMIDE 20 MG/2 ML VIAL IVP SCH (10:35)
[2016-04-07] MEDS: ISOSORBIDE MONONITRATE 60 MG ER TABLET PO SCH (10:35)
[2016-04-07] MEDS ORDERED: DIGOXIN 250 MCG/ML 2 ML AMP IVP ONE (12:00)
[2016-04-07 12:11] LABS: GLUCOSE,POINT OF CARE 100 MG/DL (70-110)
[2016-04-07] MEDS: MONTELUKAST SODIUM 10 MG TABLET PO SCH (20:07)
[2016-04-07] MEDS: CALCIUM CARBONATE 500 MG CHEWABLE TABLET CHEW PRN (23:08)
[2016-04-08] MEDS: OxyCODONE HCL/ACETAMINOPHEN 5-325 MG TABLET PO PRN ×6 (00:07→23:44)
[2016-04-08] MEDS: ZOLPIDEM TARTRATE 10 MG TABLET PO PRN ×2 (00:07→23:45)
[2016-04-08 04:00] VITALS: BP 154/86
[2016-04-08] MEDS: GlipiZIDE 5 MG TABLET PO SCH (05:57)
[2016-04-08] MEDS: LEVOTHYROXINE SODIUM 50 MCG TABLET PO SCH (05:57)
[2016-04-08 07:11] VITALS: BP 128/79
[2016-04-08 07:23] LABS: EOSINOPHILS % (AUTO) 3.1 % (1.0-6.0); HEMATOCRIT 42.2 % (36-46); HEMOGLOBIN 12.9 g/dL (12.0-16.0); LYMPHOCYTES # (AUTO) 1.5 K/uL (1.0-4.8); LYMPHOCYTES % (AUTO) 26.2 % (22.0-44.0); MEAN CORPUSCULAR HEMOGLOBIN 26.6 pg (26.0-34.0); MEAN CORPUSCULAR HGB CONC 30.5 G/dL (31.0-37.0); MEAN CORPUSCULAR VOLUME 87 fL (80-100); MONOCYTES % (AUTO) 16.1 % (2.0-9.0); NEUTROPHILS # (AUTO) 3.2 K/uL (1.8-7.7); NEUTROPHILS % (AUTO) 54.6 % (40.0-70.0); PLATELET COUNT (AUTO) 340 K/uL (150-450); RED BLOOD CELL COUNT(AUTO) 4.85 MIL/uL (4.00-5.20); RED CELL DISTRIBUTION WIDTH 21.2 % (11.5-14.5); WHITE BLOOD COUNT (AUTO) 5.9 K/uL (4.5-11.0)
[2016-04-08 07:31] LABS: ALBUMIN 2.8 g/dL (3.4-5.0); BILIRUBIN,TOTAL 0.2 mg/dL (0.1-1.0); CREATININE 1.74 mg/dL (0.60-1.30); MAGNESIUM 2.4 mg/dL (1.80-2.40); PHOSPHORUS 4.3 mg/dL (2.5-4.9); POTASSIUM 4.3 mmol/L (3.5-5.1); TOTAL PROTEIN, SERUM 6.2 g/dL (6.4-8.2)
[2016-04-08] MEDS: ISOSORBIDE MONONITRATE 60 MG ER TABLET PO SCH (08:44)
[2016-04-08] MEDS: PANTOPRAZOLE SODIUM 40 MG DR TABLET PO SCH (08:44)
[2016-04-08] MEDS: FUROSEMIDE 20 MG/2 ML VIAL IVP SCH (08:44)
[2016-04-08] MEDS: AMIODARONE HCL 200 MG TABLET PO SCH ×2 (08:44→20:37)
[2016-04-08] MEDS: CLOPIDOGREL BISULFATE 75 MG TABLET PO SCH (08:44)
[2016-04-08] MEDS: APIXABAN 2.5 MG TABLET PO SCH ×2 (08:45→20:37)
[2016-04-08] MEDS: ALLOPURINOL 300 MG TABLET PO SCH (08:45)
[2016-04-08] MEDS: NICOTINE 14 MG/24 HOUR PATCH TD SCH (09:00)
[2016-04-08] MEDS: CARVEDILOL 12.5 MG TABLET PO SCH ×2 (09:00→20:37)
[2016-04-08 10:07] LABS: RBC MORPHOLOGY COMMENT ABNORMAL RBC MORPH
[2016-04-08 11:32] VITALS: BP 126/78
[2016-04-08 15:39] VITALS: BP 160/92
[2016-04-08 19:08] VITALS: BP 155/90
[2016-04-08] MEDS: CALCIUM CARBONATE 500 MG CHEWABLE TABLET CHEW PRN (20:37)
[2016-04-08] MEDS: MONTELUKAST SODIUM 10 MG TABLET PO SCH (20:37)
[2016-04-09 00:32] VITALS: BP 143/80
[2016-04-09 05:16] VITALS: BP 128/75
[2016-04-09] MEDS: OxyCODONE HCL/ACETAMINOPHEN 5-325 MG TABLET PO PRN ×3 (05:18→14:02)
[2016-04-09] MEDS: GlipiZIDE 5 MG TABLET PO SCH (06:12)
[2016-04-09] MEDS: LEVOTHYROXINE SODIUM 50 MCG TABLET PO SCH (06:13)
[2016-04-09 06:59] LABS: CALCIUM, TOTAL 9.1 mg/dL (8.8-10.5); CREATININE 1.42 mg/dL (0.60-1.30); MAGNESIUM 2.3 mg/dL (1.80-2.40); POTASSIUM 4.7 mmol/L (3.5-5.1)
[2016-04-09 07:22] VITALS: BP 145/99
[2016-04-09] MEDS: NICOTINE 14 MG/24 HOUR PATCH TD SCH (09:00)
[2016-04-09] MEDS: ISOSORBIDE MONONITRATE 60 MG ER TABLET PO SCH (09:12)
[2016-04-09] MEDS: CLOPIDOGREL BISULFATE 75 MG TABLET PO SCH (09:12)
[2016-04-09] MEDS: PANTOPRAZOLE SODIUM 40 MG DR TABLET PO SCH (09:13)
[2016-04-09] MEDS: AMIODARONE HCL 200 MG TABLET PO SCH (09:13)
[2016-04-09] MEDS: ALLOPURINOL 300 MG TABLET PO SCH (09:14)
[2016-04-09] MEDS: CARVEDILOL 12.5 MG TABLET PO SCH (09:14)
[2016-04-09] MEDS: APIXABAN 2.5 MG TABLET PO SCH (09:14)
[2016-04-09] MEDS: FUROSEMIDE 20 MG/2 ML VIAL IVP SCH (09:35)
[2016-04-09 11:52] VITALS: BP 132/79
[2016-04-09] MEDS ORDERED: CARV12 PO (15:12)
[2016-04-09 15:40] VITALS: BP 148/89
[2016-04-10] MEDS ORDERED: FUROSEMIDE 40 MG/4 ML VIAL IVP SCH (09:00)
[2016-04-19 12:27] LABS: GLUCOSE,POINT OF CARE 79 MG/DL (70-110)
== END 2016-04-09 18:30 | disposition home or self-care (01) | DRG 194 ==
LOC: EMS 11:11 → 5N 14:31
PROVIDERS: ADMIT Hospitalist; ATTEND Hospitalist
DX: I13.0 Hypertensive heart and chronic kidney disease with heart failure and stage 1 through stage 4 chronic kidney disease, or unspecified chronic kidney disease (principal); N17.0 Acute kidney failure with tubular necrosis; E43 Unspecified severe protein-calorie malnutrition; E11.22 Type 2 diabetes mellitus with diabetic chronic kidney disease; I48.0 Paroxysmal atrial fibrillation; I50.43 Acute on chronic combined systolic (congestive) and diastolic (congestive) heart failure; I48.2 Chronic atrial fibrillation; J44.9 Chronic obstructive pulmonary disease, unspecified; I25.10 Atherosclerotic heart disease of native coronary artery without angina pectoris; E03.9 Hypothyroidism, unspecified; N18.1 Chronic kidney disease, stage 1; E87.5 Hyperkalemia; E78.00 Pure hypercholesterolemia, unspecified; E78.5 Hyperlipidemia, unspecified; E83.39 Other disorders of phosphorus metabolism; F17.210 Nicotine dependence, cigarettes, uncomplicated; J45.909 Unspecified asthma, uncomplicated; K21.9 Gastro-esophageal reflux disease without esophagitis; M10.9 Gout, unspecified; F41.9 Anxiety disorder, unspecified; M19.90 Unspecified osteoarthritis, unspecified site; Z87.442 Personal history of urinary calculi; Z88.8 Allergy status to other drugs, medicaments and biological substances; Z79.02 Long term (current) use of antithrombotics/antiplatelets; Z79.899 Other long term (current) drug therapy
CPT/HCPCS: 76770; 82570; 82962; 83735; 84100; 84300; 84443; 84540; 93005; 93970; 94640; 94644; 96374; 96375; 99285; J1160; J1940; J2270; J2405; J2930; J3535

== ENCOUNTER 2016-04-09 20:40 | Inpatient (IN) | payer OTHER ==
[~2016-04-09] VITALS: Ht 154.9 cm; Wt 108.8 kg
[~2016-04-09 20:40] MED LIST changes: +CARV12 PO
[2016-04-09 21:01] LABS: BASOPHILS % (AUTO) 0.1 % (0.0-2.0); EOSINOPHILS % (AUTO) 2.1 % (1.0-6.0); HEMATOCRIT 44.3 % (36-46); HEMOGLOBIN 13.7 g/dL (12.0-16.0); LYMPHOCYTES # (AUTO) 1.7 K/uL (1.0-4.8); LYMPHOCYTES % (AUTO) 18.6 % (22.0-44.0); MEAN CORPUSCULAR HEMOGLOBIN 26.8 pg (26.0-34.0); MEAN CORPUSCULAR HGB CONC 30.9 G/dL (31.0-37.0); MEAN CORPUSCULAR VOLUME 87 fL (80-100); MONOCYTES # (AUTO) 0.9 K/uL (0.1-1.0); MONOCYTES % (AUTO) 10.1 % (2.0-9.0); NEUTROPHILS # (AUTO) 6.2 K/uL (1.8-7.7); NEUTROPHILS % (AUTO) 69.1 % (40.0-70.0); PLATELET COUNT (AUTO) 386 K/uL (150-450); RED BLOOD CELL COUNT(AUTO) 5.11 MIL/uL (4.00-5.20); RED CELL DISTRIBUTION WIDTH 21.5 % (11.5-14.5)
[2016-04-09 21:17] LABS: CALCIUM, TOTAL 9.4 mg/dL (8.8-10.5); CREATININE 1.52 mg/dL (0.60-1.30); POTASSIUM 4.6 mmol/L (3.5-5.1)
[2016-04-09 21:24] LABS: ALBUMIN 3.3 g/dL (3.4-5.0); BILIRUBIN,TOTAL 0.2 mg/dL (0.1-1.0)
[2016-04-09 21:30] LABS: RBC MORPHOLOGY COMMENT ABNORMAL RBC MORPH
[2016-04-09] MEDS ORDERED: OxyCODONE HCL/ACETAMINOPHEN 5-325 MG TABLET PO ONE (22:30)
[2016-04-09] MEDS ORDERED: FUROSEMIDE 40 MG/4 ML VIAL IVP ONE (22:30)
[2016-04-09] MEDS ORDERED: NITROGLYCERIN 2% (1 GM=INCH) PACKET TP ONE (22:30)
[2016-04-09] MEDS ORDERED: 0.9% SODIUM CHLORIDE 10 ML SYRINGE IVP PRN (23:00)
[2016-04-09] MEDS ORDERED: ACETAMINOPHEN 325 MG TABLET PO PRN (23:00)
[2016-04-09] MEDS ORDERED: IPRATROPIUM BROMIDE 0.5 MG/2.5 ML NEB SOLUTION NEB ONE (23:00)
[2016-04-09] MEDS ORDERED: ALBUTEROL SULFATE 2.5 MG/0.5 ML NEB SOLUTION NEB SCH (23:00)
[2016-04-09] MEDS ORDERED: OXYGEN THERAPY IH SCH (23:00)
[2016-04-09] MEDS ORDERED: ONDANSETRON HCL 4 MG/2 ML VIAL IVP PRN (23:00)
[2016-04-09] MEDS ORDERED: IPRATROPIUM BROMIDE 0.5 MG/2.5 ML NEB SOLUTION NEB SCH (23:00)
[2016-04-09] MEDS ORDERED: ALBUTEROL SULFATE 5 MG/ML 20 ML NEB SOLN [BULK] NEB ONE (23:00)
[2016-04-09] MEDS ORDERED: PIPERACILLIN/TAZO 3.375 GM/D5W 50 ML IV ONE (23:00)
[2016-04-10] MEDS ORDERED: OxyCODONE HCL/ACETAMINOPHEN 5-325 MG TABLET PO ONE (02:30)
[2016-04-10] MEDS ORDERED: CARVEDILOL 12.5 MG TABLET PO SCH (03:00)
[2016-04-10] MEDS ORDERED: AMIODARONE HCL 200 MG TABLET PO SCH (03:00)
[2016-04-10] MEDS ORDERED: APIXABAN 2.5 MG TABLET PO SCH (03:30)
[2016-04-10] MEDS: AMIODARONE HCL 200 MG TABLET PO SCH ×2 (05:31→20:09)
[2016-04-10] MEDS: CARVEDILOL 12.5 MG TABLET PO SCH ×2 (05:31→20:09)
[2016-04-10] MEDS: APIXABAN 2.5 MG TABLET PO SCH ×2 (05:31→20:08)
[2016-04-10] MEDS: PIPERACILLIN/TAZO 3.375 GM/D5W 50 ML IV SCH ×4 (05:52→23:43)
[2016-04-10] MEDS: HYDROCODONE/ACETAMINOPHEN 10-325 MG TABLET PO PRN ×4 (05:57→23:43)
[2016-04-10 06:00] LABS: INFLUENZA TYPE B NEGATIVE FOR TYPE B (NEGATIVE)
[2016-04-10 09:13] VITALS: BP 136/77
[2016-04-10] MEDS: FUROSEMIDE 40 MG/4 ML VIAL IVP SCH ×2 (09:39→20:09)
[2016-04-10] MEDS: ALLOPURINOL 300 MG TABLET PO SCH (09:39)
[2016-04-10 11:15] VITALS: BP 155/75
[2016-04-10 12:04] LABS: ABG BASE EXCESS 5.2 mmol/L (-2.0-3.0); ABG HCO3 28.9 mmol/L (22.0-26.0); ABG OXYHEMOGLOBIN 92.1 % (94.0-100.0); ABG PCO2 39 mmHg (35-45); ABG PH 7.484 (7.35-7.450); TEMPERATURE, FAHRENHEIT, BG 98.6 FAHREN (96.0-98.6)
[2016-04-10] MEDS ORDERED: SODIUM CHLORIDE 0.9% 250 ML IV ONE (13:49)
[2016-04-10] MEDS ORDERED: PNEUMOCOCCAL VACCINE POLYVALENT 0.5 ML VIAL [PPSV23] IM ONE (14:00)
[2016-04-10] MEDS ORDERED: INFLUENZA VIRUS VACCINE QVS 2016-17 (3YR+)/PF 60 MCG/0.5 ML SYRINGE IM ONE (14:00)
[2016-04-10 15:10] VITALS: BP 138/99
[2016-04-10 16:16] LABS: GLUCOSE,POINT OF CARE 111 MG/DL (70-110)
[2016-04-10 20:00] VITALS: BP 144/87
[2016-04-10] MEDS: ATORVASTATIN CALCIUM 20 MG TABLET PO SCH (20:08)
[2016-04-10] MEDS: ZOLPIDEM TARTRATE 10 MG TABLET PO PRN (23:00)
[2016-04-11 04:52] VITALS: BP 123/64
[2016-04-11 05:36] LABS: CALCIUM, TOTAL 8.8 mg/dL (8.8-10.5); CREATININE 1.61 mg/dL (0.60-1.30)
[2016-04-11] MEDS: PIPERACILLIN/TAZO 3.375 GM/D5W 50 ML IV SCH ×4 (05:45→23:59)
[2016-04-11] MEDS: HYDROCODONE/ACETAMINOPHEN 10-325 MG TABLET PO PRN ×4 (05:45→23:59)
[2016-04-11] MEDS: CARVEDILOL 12.5 MG TABLET PO SCH ×2 (08:11→19:51)
[2016-04-11] MEDS: APIXABAN 2.5 MG TABLET PO SCH ×2 (08:12→19:50)
[2016-04-11] MEDS: FUROSEMIDE 40 MG/4 ML VIAL IVP SCH ×2 (08:12→19:51)
[2016-04-11] MEDS: AMIODARONE HCL 200 MG TABLET PO SCH ×2 (08:12→19:51)
[2016-04-11] MEDS: ALLOPURINOL 300 MG TABLET PO SCH (08:12)
[2016-04-11] MEDS ORDERED: IPRATROPIUM BROMIDE 0.5 MG/2.5 ML NEB SOLUTION NEB PRN (09:00)
[2016-04-11] MEDS ORDERED: ALBUTEROL SULFATE 2.5 MG/0.5 ML NEB SOLUTION NEB PRN (09:00)
[2016-04-11 09:06] VITALS: BP 131/75
[2016-04-11 11:26] VITALS: BP 126/71
[2016-04-11] MEDS ORDERED: ALBUTEROL SULFATE 2.5 MG/0.5 ML NEB SOLUTION NEB SCH (14:00)
[2016-04-11] MEDS ORDERED: IPRATROPIUM BROMIDE 0.5 MG/2.5 ML NEB SOLUTION NEB SCH (14:00)
[2016-04-11 15:10] VITALS: BP 151/91
[2016-04-11 19:34] VITALS: BP 150/100
[2016-04-11] MEDS: ATORVASTATIN CALCIUM 20 MG TABLET PO SCH (19:50)
[2016-04-11] MEDS: ZOLPIDEM TARTRATE 10 MG TABLET PO PRN (21:57)
[2016-04-11 23:52] VITALS: BP 149/95
[2016-04-12 00:55] VITALS: BP 145/97
[2016-04-12 04:00] VITALS: BP 137/98
[2016-04-12] MEDS: PIPERACILLIN/TAZO 3.375 GM/D5W 50 ML IV SCH (05:36)
[2016-04-12] MEDS: HYDROCODONE/ACETAMINOPHEN 10-325 MG TABLET PO PRN ×2 (05:38→11:39)
[2016-04-12 06:38] LABS: CALCIUM, TOTAL 9.2 mg/dL (8.8-10.5); CREATININE 1.68 mg/dL (0.60-1.30); POTASSIUM 3.8 mmol/L (3.5-5.1)
[2016-04-12 08:05] VITALS: BP 159/89
[2016-04-12] MEDS: CARVEDILOL 12.5 MG TABLET PO SCH (08:49)
[2016-04-12] MEDS: APIXABAN 2.5 MG TABLET PO SCH (08:49)
[2016-04-12] MEDS: AMIODARONE HCL 200 MG TABLET PO SCH (08:49)
[2016-04-12] MEDS: ALLOPURINOL 300 MG TABLET PO SCH (08:49)
[2016-04-12] MEDS: FUROSEMIDE 40 MG/4 ML VIAL IVP SCH (09:14)
[2016-04-12] MEDS ORDERED: PIPERACILLIN SODIUM/TAZOBACTAM 2.25 GM in DEXTROSE 5%-WATER 50 ML IV SCH (12:00)
[2016-04-12 12:01] VITALS: BP 131/72
[2016-04-12 15:12] VITALS: BP 144/112
== END 2016-04-12 17:30 | disposition home or self-care (01) | DRG 140 ==
LOC: EMS 20:41 → 6N 04-10 00:30
PROVIDERS: ADMIT Internal Medicine; ATTEND Internal Medicine
DX: J44.1 Chronic obstructive pulmonary disease with (acute) exacerbation (principal); E43 Unspecified severe protein-calorie malnutrition; I50.43 Acute on chronic combined systolic (congestive) and diastolic (congestive) heart failure; N17.9 Acute kidney failure, unspecified; E11.22 Type 2 diabetes mellitus with diabetic chronic kidney disease; I48.2 Chronic atrial fibrillation; F11.20 Opioid dependence, uncomplicated; Z68.42 Body mass index [BMI] 45.0-49.9, adult; I13.0 Hypertensive heart and chronic kidney disease with heart failure and stage 1 through stage 4 chronic kidney disease, or unspecified chronic kidney disease; E66.01 Morbid (severe) obesity due to excess calories; I25.10 Atherosclerotic heart disease of native coronary artery without angina pectoris; E03.9 Hypothyroidism, unspecified; E78.00 Pure hypercholesterolemia, unspecified; E78.5 Hyperlipidemia, unspecified; F17.210 Nicotine dependence, cigarettes, uncomplicated; J45.909 Unspecified asthma, uncomplicated; K21.9 Gastro-esophageal reflux disease without esophagitis; M10.9 Gout, unspecified; N18.9 Chronic kidney disease, unspecified; Z91.19 Patient's noncompliance with other medical treatment and regimen; F41.9 Anxiety disorder, unspecified; M54.5 Low back pain; Z88.8 Allergy status to other drugs, medicaments and biological substances; Z79.899 Other long term (current) drug therapy; Z79.01 Long term (current) use of anticoagulants; Z79.84 Long term (current) use of oral hypoglycemic drugs; Z79.1 Long term (current) use of non-steroidal anti-inflammatories (NSAID); Z28.21 Immunization not carried out because of patient refusal
CPT/HCPCS: 82805; 82962; 87040; 87081; 87804; 93005; 94640; 96365; 96375; 97161; 99285; J1940; J2543; J7050; J7060

== ENCOUNTER 2016-05-03 13:10 | Emergency (ER) | payer OTHER ==
[~2016-05-03] VITALS: Ht 157.5 cm; Wt 110.0 kg
[~2016-05-03 13:10] MED LIST changes: -CARV25 PO; -CEPH-582 PO; -HYDR50 PO
[2016-05-03] MEDS ORDERED: FUROSEMIDE 40 MG/4 ML VIAL IVP ONE (19:15)
[2016-05-03] MEDS ORDERED: ALBUTEROL SULFATE 2.5 MG/0.5 ML NEB SOLUTION NEB ONE ×2 (19:15→21:15)
[2016-05-03 19:46] LABS: BASOPHILS % (AUTO) 0.5 % (0.0-2.0); EOSINOPHILS % (AUTO) 2.5 % (1.0-6.0); HEMATOCRIT 40.5 % (36-46); HEMOGLOBIN 12.4 g/dL (12.0-16.0); LYMPHOCYTES # (AUTO) 1.4 K/uL (1.0-4.8); LYMPHOCYTES % (AUTO) 11.5 % (22.0-44.0); MEAN CORPUSCULAR HGB CONC 30.5 G/dL (31.0-37.0); MEAN CORPUSCULAR VOLUME 85 fL (80-100); MONOCYTES % (AUTO) 7.8 % (2.0-9.0); NEUTROPHILS # (AUTO) 9.7 K/uL (1.8-7.7); NEUTROPHILS % (AUTO) 77.7 % (40.0-70.0); PLATELET COUNT (AUTO) 281 K/uL (150-450); RED BLOOD CELL COUNT(AUTO) 4.77 MIL/uL (4.00-5.20); WHITE BLOOD COUNT (AUTO) 12.5 K/uL (4.5-11.0)
[2016-05-03 19:56] LABS: ANION GAP 11 mmol/L (8-16); CALCIUM, TOTAL 9.3 mg/dL (8.8-10.5); CARBON DIOXIDE 27 mmol/L (22-29); CHLORIDE 107 mmol/L (98-107); CREATININE 1.19 mg/dL (0.60-1.30); GLOMERULAR FILTR. RATE CALC 47 mL/min (>60); POTASSIUM 3.3 mmol/L (3.5-5.1); SODIUM SERUM 145 mmol/L (136-145); UREA NITROGEN, BLOOD 16 mg/dL (7-18)
[2016-05-03 20:01] LABS: ALANINE AMINOTRANSFERASE 21 U/L (12-78); ALBUMIN 3.4 g/dL (3.4-5.0); ASPARTATE AMINOTRANSFERASE 21 U/L (15-37); BILIRUBIN,TOTAL 0.9 mg/dL (0.1-1.0); CREATINE KINASE, TOTAL 42 U/L (26-192); TOTAL PROTEIN, SERUM 6.8 g/dL (6.4-8.2)
[2016-05-03 20:19] LABS: B-TYPE NATRIURETIC PEPTIDE 2100 pg/mL (0-100)
[2016-05-03 20:36] LABS: RBC MORPHOLOGY COMMENT ABNORMAL RBC MORPH
[2016-05-03] MEDS ORDERED: IPRATROPIUM BROMIDE 0.5 MG/2.5 ML NEB SOLUTION NEB ONE (21:15)
[2016-05-03] MEDS ORDERED: MethylPREDNISolone SOD SUCC 125 MG/2 ML VIAL IVP ONE (21:15)
[2016-05-03 22:40] VITALS: BP 135/88
== END 2016-05-03 23:00 | disposition home or self-care (01) ==
LOC: EMS 20:52
DX: I11.0 Hypertensive heart disease with heart failure (principal); I50.9 Heart failure, unspecified; J44.9 Chronic obstructive pulmonary disease, unspecified; M79.89 Other specified soft tissue disorders; E11.9 Type 2 diabetes mellitus without complications; E78.00 Pure hypercholesterolemia, unspecified; J45.909 Unspecified asthma, uncomplicated; F17.210 Nicotine dependence, cigarettes, uncomplicated; Z88.8 Allergy status to other drugs, medicaments and biological substances
CPT/HCPCS: 36415; 71010; 80053; 82550; 83880; 84484; 85025; 93005; 94060; 94640; 96374; 96375; 99285; J1940; J2930; J7613

== ENCOUNTER 2016-07-27 22:22 | Inpatient (IN) | payer OTHER ==
[~2016-07-27] VITALS: Ht 157.5 cm; Wt 104.7 kg
[2016-07-28 00:02] LABS: BASOPHILS # (AUTO) 0.01 K/uL (0.00-0.20); BASOPHILS % (AUTO) 0.1 % (0.0-2.0); EOSINOPHILS # (AUTO) 0.12 K/uL (0.00-0.70); EOSINOPHILS % (AUTO) 1.21 % (1.0-6.0); HEMATOCRIT 39.8 % (36-46); HEMOGLOBIN 13.1 g/dL (12.0-16.0); LYMPHOCYTES # (AUTO) 1.1 K/uL (1.0-4.8); LYMPHOCYTES % (AUTO) 10.4 % (22.0-44.0); MEAN CORPUSCULAR HEMOGLOBIN 27.4 pg (26.0-34.0); MEAN CORPUSCULAR HGB CONC 32.8 G/dL (31.0-37.0); MEAN CORPUSCULAR VOLUME 84 fL (80-100); MONOCYTES # (AUTO) 0.8 K/uL (0.1-1.0); MONOCYTES % (AUTO) 7.8 % (2.0-9.0); NEUTROPHILS # (AUTO) 8.1 K/uL (1.8-7.7); NEUTROPHILS % (AUTO) 80.5 % (40.0-70.0); PLATELET COUNT (AUTO) 332 K/uL (150-450); RED BLOOD CELL COUNT(AUTO) 4.76 MIL/uL (4.00-5.20)
[2016-07-28 00:32] LABS: INR 1.1 (0.9-1.1); PROTHROMBIN TIME 11.4 SEC (9.4-11.6)
[2016-07-28 00:35] LABS: ANION GAP 8 mmol/L (8-16); CALCIUM, TOTAL 8.9 mg/dL (8.8-10.5); CARBON DIOXIDE 28 mmol/L (22-29); CHLORIDE 103 mmol/L (98-107); GLOMERULAR FILTR. RATE CALC 43 mL/min (>60); POTASSIUM 3.8 mmol/L (3.5-5.1); SODIUM SERUM 139 mmol/L (136-145); UREA NITROGEN, BLOOD 24 mg/dL (7-18)
[2016-07-28 00:40] LABS: ALANINE AMINOTRANSFERASE 32 U/L (12-78); ALBUMIN 3.5 g/dL (3.4-5.0); ASPARTATE AMINOTRANSFERASE 21 U/L (15-37); BILIRUBIN,TOTAL 0.7 mg/dL (0.1-1.0)
[2016-07-28] MEDS ORDERED: HYDROCODONE/ACETAMINOPHEN 5-325 MG TABLET PO ONE (01:15)
[2016-07-28] MEDS ORDERED: 0.9% SODIUM CHLORIDE 5 ML NEB SOLUTION NEB ONE (03:43)
[2016-07-28] MEDS ORDERED: DEXAMETHASONE SOD PHOS 4 MG/ML 5 ML VIAL IVP ONE (03:45)
[2016-07-28] MEDS ORDERED: MAGNESIUM SULFATE 2 GM in DEXTROSE 5%-WATER 50 ML IV ONE (03:45)
[2016-07-28] MEDS ORDERED: IPRATROPIUM BROMIDE 0.5 MG/2.5 ML NEB SOLUTION NEB ONE (03:45)
[2016-07-28] MEDS ORDERED: ALBUTEROL SULFATE 5 MG/ML 20 ML NEB SOLN [BULK] NEB ONE (03:45)
[2016-07-28] MEDS ORDERED: FUROSEMIDE 40 MG/4 ML VIAL IVP ONE (04:45)
[2016-07-28] MEDS ORDERED: MAGNESIUM HYDROXIDE SUSPENSION 30 ML UDCUP PO PRN (07:30)
[2016-07-28] MEDS ORDERED: ACETAMINOPHEN 325 MG TABLET PO PRN (07:30)
[2016-07-28] MEDS ORDERED: DEXTROSE 50%-WATER 25 GM/50 ML SYRINGE IVP PRN (07:45)
[2016-07-28] MEDS ORDERED: HEPARIN SODIUM,PORCINE 5,000 UNITS/ML VIAL SQ SCH (08:00)
[2016-07-28] MEDS: DOCUSATE SODIUM 100 MG CAPSULE PO SCH ×2 (08:26→21:12)
[2016-07-28] MEDS: FUROSEMIDE 40 MG/4 ML VIAL IVP SCH ×2 (08:26→21:12)
[2016-07-28] MEDS: APIXABAN 2.5 MG TABLET PO SCH ×2 (08:26→21:12)
[2016-07-28] MEDS: PANTOPRAZOLE SODIUM 40 MG DR TABLET PO SCH (08:26)
[2016-07-28] MEDS: AMIODARONE HCL 200 MG TABLET PO SCH ×2 (08:26→21:12)
[2016-07-28 09:51] VITALS: BP 154/104
[2016-07-28] MEDS: OxyCODONE HCL/ACETAMINOPHEN 5-325 MG TABLET PO PRN ×3 (10:13→22:02)
[2016-07-28 11:26] VITALS: BP 156/94
[2016-07-28 11:27] LABS: GLUCOSE,POINT OF CARE 221 MG/DL (70-110)
[2016-07-28] MEDS: INSULIN ASPART 100 UNITS/ML SQ PRN ×3 (12:08→21:28)
[2016-07-28 15:38] VITALS: BP 123/70
[2016-07-28 19:26] VITALS: BP 148/102
[2016-07-28] MEDS: ALBUTEROL SULFATE 2.5 MG/0.5 ML NEB SOLUTION NEB PRN (19:52)
[2016-07-28] MEDS: IPRATROPIUM BROMIDE 0.5 MG/2.5 ML NEB SOLUTION NEB PRN (19:52)
[2016-07-28 20:02] LABS: GLUCOSE COMMENT 1 Received Meds; GLUCOSE,POINT OF CARE 298 MG/DL (70-110)
[2016-07-28 20:02] LABS: GLUCOSE,POINT OF CARE 198 MG/DL (70-110)
[2016-07-28] MEDS: OXYGEN THERAPY IH SCH (20:20)
[2016-07-28] MEDS ORDERED: SIMVASTATIN 20 MG TABLET PO SCH (21:00)
[2016-07-28] MEDS: INDOMETHACIN 50 MG CAPSULE PO PRN (21:12)
[2016-07-28 21:30] VITALS: BP 146/87
[2016-07-28 23:35] VITALS: BP 149/96
[2016-07-28] MEDS: GuaiFENesin/D-METHORPHAN [SUGAR-FREE] 200-20MG/10 ML SYRUP UDCUP PO PRN (23:51)
[2016-07-29] VITALS (12 sets, daily range): BP systolic 100–151; BP diastolic 59–107
[2016-07-29] MEDS: INDOMETHACIN 50 MG CAPSULE PO PRN (04:10)
[2016-07-29] MEDS: OxyCODONE HCL/ACETAMINOPHEN 5-325 MG TABLET PO PRN ×3 (04:10→22:23)
[2016-07-29] MEDS: FUROSEMIDE 40 MG/4 ML VIAL IVP SCH ×2 (05:56→20:01)
[2016-07-29] MEDS: INSULIN ASPART 100 UNITS/ML SQ PRN ×2 (06:04→20:11)
[2016-07-29] MEDS: GuaiFENesin/D-METHORPHAN [SUGAR-FREE] 200-20MG/10 ML SYRUP UDCUP PO PRN ×2 (06:07→18:13)
[2016-07-29 06:32] LABS: GLUCOSE COMMENT 1 Received Meds; GLUCOSE,POINT OF CARE 213 MG/DL (70-110)
[2016-07-29 06:36] LABS: EOSINOPHILS % (AUTO) 0 % (1.0-6.0); HEMOGLOBIN 13.5 g/dL (12.0-16.0); LYMPHOCYTES # (AUTO) 0.7 K/uL (1.0-4.8); LYMPHOCYTES % (AUTO) 6.8 % (22.0-44.0); MEAN CORPUSCULAR HEMOGLOBIN 26.6 pg (26.0-34.0); MEAN CORPUSCULAR HGB CONC 30.8 G/dL (31.0-37.0); MEAN CORPUSCULAR VOLUME 87 fL (80-100); NEUTROPHILS # (AUTO) 8.2 K/uL (1.8-7.7); NEUTROPHILS % (AUTO) 83.2 % (40.0-70.0); PLATELET COUNT (AUTO) 301 K/uL (150-450); RED BLOOD CELL COUNT(AUTO) 5.08 MIL/uL (4.00-5.20); RED CELL DISTRIBUTION WIDTH 21.9 % (11.5-14.5); WHITE BLOOD COUNT (AUTO) 9.9 K/uL (4.5-11.0)
[2016-07-29 07:04] LABS: ALBUMIN 3.5 g/dL (3.4-5.0); BILIRUBIN,TOTAL 0.5 mg/dL (0.1-1.0); CALCIUM, TOTAL 8.8 mg/dL (8.8-10.5); CREATININE 1.42 mg/dL (0.60-1.30); MAGNESIUM 1.6 mg/dL (1.80-2.40); POTASSIUM 4.1 mmol/L (3.5-5.1); TOTAL PROTEIN, SERUM 7.2 g/dL (6.4-8.2)
[2016-07-29] MEDS ORDERED: ALBUTEROL SULFATE HFA 90 MCG/PUFF 8 GM INHALER IH PRN (07:30)
[2016-07-29] MEDS ORDERED: MAGNESIUM SULFATE 2 GM in DEXTROSE 5%-WATER 50 ML IV ONE (07:45)
[2016-07-29 07:57] LABS: GLUCOSE COMMENT 1 Received Meds; GLUCOSE,POINT OF CARE 172 MG/DL (70-110)
[2016-07-29] MEDS ORDERED: SODIUM CHLORIDE 0.9% 100 ML ONE (08:34)
[2016-07-29] MEDS: CARVEDILOL 12.5 MG TABLET PO SCH ×2 (08:37→22:23)
[2016-07-29] MEDS: DOCUSATE SODIUM 100 MG CAPSULE PO SCH ×2 (08:37→20:01)
[2016-07-29] MEDS: OXYGEN THERAPY IH SCH ×2 (08:37→20:10)
[2016-07-29] MEDS: GlipiZIDE 5 MG TABLET PO SCH (08:37)
[2016-07-29] MEDS: APIXABAN 2.5 MG TABLET PO SCH ×2 (08:38→20:01)
[2016-07-29] MEDS: SACUBITRIL/VALSARTAN 24-26 MG TABLET PO SCH ×2 (08:38→21:11)
[2016-07-29] MEDS: POTASSIUM CHLORIDE 10 MEQ ER TABLET PO SCH ×2 (08:39→20:01)
[2016-07-29] MEDS: RANITIDINE HCL 150 MG TABLET PO SCH ×2 (08:39→20:02)
[2016-07-29] MEDS: ISOSORBIDE MONONITRATE 60 MG ER TABLET PO SCH (08:39)
[2016-07-29] MEDS: AMIODARONE HCL 200 MG TABLET PO SCH ×2 (08:39→20:01)
[2016-07-29] MEDS: ALLOPURINOL 300 MG TABLET PO SCH (08:39)
[2016-07-29] MEDS: CLOPIDOGREL BISULFATE 75 MG TABLET PO SCH (08:39)
[2016-07-29] MEDS: PANTOPRAZOLE SODIUM 40 MG DR TABLET PO SCH (08:39)
[2016-07-29] MEDS ORDERED: OMEPRAZOLE 20 MG CAPSULE PO SCH (09:00)
[2016-07-29] MEDS ORDERED: ZOLPIDEM TARTRATE 5 MG TABLET PO PRN (12:30)
[2016-07-29] MEDS: MONTELUKAST SODIUM 10 MG TABLET PO SCH (20:01)
[2016-07-29] MEDS: SIMVASTATIN 20 MG TABLET PO SCH (20:02)
[2016-07-29] MEDS: ALBUTEROL SULFATE 2.5 MG/0.5 ML NEB SOLUTION NEB PRN (20:29)
[2016-07-29] MEDS: IPRATROPIUM BROMIDE 0.5 MG/2.5 ML NEB SOLUTION NEB PRN (20:29)
[2016-07-29] MEDS ORDERED: ATORVASTATIN CALCIUM 20 MG TABLET PO SCH (21:00)
[2016-07-30] MEDS: GuaiFENesin/D-METHORPHAN [SUGAR-FREE] 200-20MG/10 ML SYRUP UDCUP PO PRN ×2 (00:55→12:02)
[2016-07-30 01:07] LABS: GLUCOSE,POINT OF CARE 126 MG/DL (70-110)
[2016-07-30] MEDS: IPRATROPIUM BROMIDE 0.5 MG/2.5 ML NEB SOLUTION NEB PRN (01:11)
[2016-07-30] MEDS: ALBUTEROL SULFATE 2.5 MG/0.5 ML NEB SOLUTION NEB PRN (01:11)
[2016-07-30 01:32] LABS: GLUCOSE,POINT OF CARE 106 MG/DL (70-110)
[2016-07-30 04:59] VITALS: BP 128/77
[2016-07-30] MEDS: INSULIN ASPART 100 UNITS/ML SQ PRN ×2 (05:51→18:27)
[2016-07-30 06:09] LABS: HEMATOCRIT 41.5 % (36-46); HEMOGLOBIN 12.9 g/dL (12.0-16.0); MEAN CORPUSCULAR HEMOGLOBIN 26.8 pg (26.0-34.0); MEAN CORPUSCULAR VOLUME 86 fL (80-100); PLATELET COUNT (AUTO) 300 K/uL (150-450); RED BLOOD CELL COUNT(AUTO) 4.79 MIL/uL (4.00-5.20); RED CELL DISTRIBUTION WIDTH 21.8 % (11.5-14.5); WHITE BLOOD COUNT (AUTO) 11.7 K/uL (4.5-11.0)
[2016-07-30] MEDS: GlipiZIDE 5 MG TABLET PO SCH (06:30)
[2016-07-30 06:33] LABS: ALBUMIN 3.1 g/dL (3.4-5.0); BILIRUBIN,TOTAL 0.4 mg/dL (0.1-1.0); CALCIUM, TOTAL 8.4 mg/dL (8.8-10.5); CREATININE 1.68 mg/dL (0.60-1.30); MAGNESIUM 1.9 mg/dL (1.80-2.40); POTASSIUM 4.3 mmol/L (3.5-5.1); TOTAL PROTEIN, SERUM 6.3 g/dL (6.4-8.2)
[2016-07-30] MEDS: OxyCODONE HCL/ACETAMINOPHEN 5-325 MG TABLET PO PRN ×4 (06:53→22:29)
[2016-07-30 07:47] LABS: GLUCOSE,POINT OF CARE 109 MG/DL (70-110)
[2016-07-30 08:09] VITALS: BP 145/88
[2016-07-30 09:39] LABS: BAND NEUTROPHILS % (MANUAL) 6 % (1-5); LYMPHOCYTES % (MANUAL) 22 % (22-44); TOTAL CELLS COUNTED 100
[2016-07-30 09:40] LABS: RBC MORPHOLOGY COMMENT ABNORMAL RBC MORPH
[2016-07-30] MEDS: AMIODARONE HCL 200 MG TABLET PO SCH ×2 (10:00→20:25)
[2016-07-30] MEDS: ISOSORBIDE MONONITRATE 60 MG ER TABLET PO SCH (10:00)
[2016-07-30] MEDS: CARVEDILOL 12.5 MG TABLET PO SCH ×2 (10:00→20:25)
[2016-07-30] MEDS: SACUBITRIL/VALSARTAN 24-26 MG TABLET PO SCH ×2 (10:00→20:25)
[2016-07-30] MEDS: OXYGEN THERAPY IH SCH ×2 (10:00→22:28)
[2016-07-30] MEDS: RANITIDINE HCL 150 MG TABLET PO SCH ×2 (10:00→20:25)
[2016-07-30] MEDS: PANTOPRAZOLE SODIUM 40 MG DR TABLET PO SCH (10:00)
[2016-07-30] MEDS: POTASSIUM CHLORIDE 10 MEQ ER TABLET PO SCH ×2 (10:00→20:25)
[2016-07-30] MEDS: DOCUSATE SODIUM 100 MG CAPSULE PO SCH ×2 (10:00→20:25)
[2016-07-30] MEDS: APIXABAN 2.5 MG TABLET PO SCH ×2 (10:00→20:24)
[2016-07-30] MEDS: ALLOPURINOL 300 MG TABLET PO SCH (10:00)
[2016-07-30] MEDS: CLOPIDOGREL BISULFATE 75 MG TABLET PO SCH (10:01)
[2016-07-30 11:46] VITALS: BP 123/85
[2016-07-30 12:04] LABS: THYROID STIMULATING HORMONE 2.06 uIU/mL (0.36-3.74)
[2016-07-30] MEDS ORDERED: ONDANSETRON HCL 4 MG/2 ML VIAL IVP PRN (12:30)
[2016-07-30 15:10] VITALS: BP 127/80
[2016-07-30 19:20] VITALS: BP 135/81
[2016-07-30] MEDS: MONTELUKAST SODIUM 10 MG TABLET PO SCH (20:24)
[2016-07-30] MEDS: FUROSEMIDE 40 MG TABLET PO SCH (20:25)
[2016-07-30] MEDS: SIMVASTATIN 20 MG TABLET PO SCH (20:25)
[2016-07-30 21:27] LABS: GLUCOSE,POINT OF CARE 101 MG/DL (70-110)
[2016-07-30 21:32] LABS: GLUCOSE,POINT OF CARE 84 MG/DL (70-110)
[2016-07-30 22:07] LABS: GLUCOSE,POINT OF CARE 101 MG/DL (70-110)
[2016-07-30 22:07] LABS: GLUCOSE,POINT OF CARE 144 MG/DL (70-110)
[2016-07-30 23:53] VITALS: BP 126/68
[2016-07-31 00:16] LABS: APPEARANCE,URINE CLEAR (CLEAR); GLUCOSE, URINE (UA) NEGATIVE (NEGATIVE); KETONES,URINE NEGATIVE (NEGATIVE); LEUKOCYTE ESTERASE ,URINE NEGATIVE (NEGATIVE); OCCULT BLOOD,URINE NEGATIVE (NEGATIVE); PROTEIN,URINE POS 1+ (NEGATIVE)
[2016-07-31 00:30] LABS: ADD UA MICROSCOPIC YES
[2016-07-31 00:57] LABS: RBC,URINE 0-2 /HPF (0-2)
[2016-07-31 00:58] LABS: SQUAMOUS EPITHELIAL CELL,UR Few /LPF (None Seen)
[2016-07-31] MEDS: OxyCODONE HCL/ACETAMINOPHEN 5-325 MG TABLET PO PRN ×5 (02:39→23:21)
[2016-07-31 05:15] VITALS: BP 126/89
[2016-07-31] MEDS: LEVOTHYROXINE SODIUM 50 MCG TABLET PO SCH (06:14)
[2016-07-31] MEDS: GlipiZIDE 5 MG TABLET PO SCH (06:14)
[2016-07-31 06:49] LABS: EOSINOPHILS % (AUTO) 3.5 % (1.0-6.0); HEMATOCRIT 44.1 % (36-46); HEMOGLOBIN 13.7 g/dL (12.0-16.0); LYMPHOCYTES % (AUTO) 29.1 % (22.0-44.0); MEAN CORPUSCULAR HGB CONC 31.1 G/dL (31.0-37.0); MEAN CORPUSCULAR VOLUME 87 fL (80-100); MONOCYTES # (AUTO) 1.2 K/uL (0.1-1.0); NEUTROPHILS # (AUTO) 3.4 K/uL (1.8-7.7); NEUTROPHILS % (AUTO) 50.4 % (40.0-70.0); PLATELET COUNT (AUTO) 309 K/uL (150-450); RED BLOOD CELL COUNT(AUTO) 5.08 MIL/uL (4.00-5.20); RED CELL DISTRIBUTION WIDTH 21.5 % (11.5-14.5); WHITE BLOOD COUNT (AUTO) 6.8 K/uL (4.5-11.0)
[2016-07-31 07:20] VITALS: BP 130/97
[2016-07-31 07:33] LABS: ALBUMIN 3.1 g/dL (3.4-5.0); BILIRUBIN,TOTAL 0.3 mg/dL (0.1-1.0); CALCIUM, TOTAL 8.5 mg/dL (8.8-10.5); CREATININE 1.7 mg/dL (0.60-1.30); MAGNESIUM 1.9 mg/dL (1.80-2.40); POTASSIUM 5.4 mmol/L (3.5-5.1); TOTAL PROTEIN, SERUM 6.1 g/dL (6.4-8.2)
[2016-07-31] MEDS: ALLOPURINOL 300 MG TABLET PO SCH (08:16)
[2016-07-31] MEDS: RANITIDINE HCL 150 MG TABLET PO SCH ×2 (08:16→20:14)
[2016-07-31] MEDS: DOCUSATE SODIUM 100 MG CAPSULE PO SCH ×2 (08:16→20:14)
[2016-07-31] MEDS: CLOPIDOGREL BISULFATE 75 MG TABLET PO SCH (08:16)
[2016-07-31] MEDS: ISOSORBIDE MONONITRATE 60 MG ER TABLET PO SCH (08:16)
[2016-07-31] MEDS: OXYGEN THERAPY IH SCH ×2 (08:16→20:14)
[2016-07-31] MEDS: FUROSEMIDE 40 MG TABLET PO SCH ×2 (08:16→20:15)
[2016-07-31] MEDS: PANTOPRAZOLE SODIUM 40 MG DR TABLET PO SCH (08:17)
[2016-07-31] MEDS: CARVEDILOL 12.5 MG TABLET PO SCH ×2 (08:17→20:15)
[2016-07-31] MEDS: POTASSIUM CHLORIDE 10 MEQ ER TABLET PO SCH (08:17)
[2016-07-31] MEDS: SACUBITRIL/VALSARTAN 24-26 MG TABLET PO SCH ×2 (08:17→20:14)
[2016-07-31] MEDS: APIXABAN 2.5 MG TABLET PO SCH ×2 (08:17→20:15)
[2016-07-31] MEDS: AMIODARONE HCL 200 MG TABLET PO SCH ×2 (08:17→20:15)
[2016-07-31 08:31] LABS: GLUCOSE,POINT OF CARE 132 MG/DL (70-110)
[2016-07-31] MEDS ORDERED: SODIUM POLYSTYRENE SULFONATE 15 GM/60 ML SUSPENSION BOTTLE PO ONE (09:45)
[2016-07-31 11:27] VITALS: BP 117/79
[2016-07-31 15:36] VITALS: BP 122/80
[2016-07-31 18:32] LABS: GLUCOSE,POINT OF CARE 115 MG/DL (70-110)
[2016-07-31 18:32] LABS: GLUCOSE,POINT OF CARE 90 MG/DL (70-110)
[2016-07-31 19:39] VITALS: BP 157/99
[2016-07-31] MEDS: MONTELUKAST SODIUM 10 MG TABLET PO SCH (20:15)
[2016-07-31] MEDS: SIMVASTATIN 20 MG TABLET PO SCH (20:15)
[2016-07-31 21:18] LABS: GLUCOSE,POINT OF CARE 82 MG/DL (70-110)
[2016-07-31 23:17] VITALS: BP 130/78
[2016-08-01 03:39] VITALS: BP 136/78
[2016-08-01] MEDS: OxyCODONE HCL/ACETAMINOPHEN 5-325 MG TABLET PO PRN ×2 (03:46→11:49)
[2016-08-01] MEDS: LEVOTHYROXINE SODIUM 50 MCG TABLET PO SCH (05:46)
[2016-08-01] MEDS: GlipiZIDE 5 MG TABLET PO SCH (05:46)
[2016-08-01 06:52] LABS: BASOPHILS % (AUTO) 0.1 % (0.0-2.0); EOSINOPHILS % (AUTO) 3.2 % (1.0-6.0); HEMATOCRIT 44.7 % (36-46); LYMPHOCYTES # (AUTO) 1.6 K/uL (1.0-4.8); LYMPHOCYTES % (AUTO) 17.5 % (22.0-44.0); MEAN CORPUSCULAR HEMOGLOBIN 27.1 pg (26.0-34.0); MEAN CORPUSCULAR HGB CONC 31.3 G/dL (31.0-37.0); MEAN CORPUSCULAR VOLUME 87 fL (80-100); MONOCYTES # (AUTO) 0.8 K/uL (0.1-1.0); MONOCYTES % (AUTO) 9.1 % (2.0-9.0); NEUTROPHILS # (AUTO) 6.5 K/uL (1.8-7.7); NEUTROPHILS % (AUTO) 70.1 % (40.0-70.0); PLATELET COUNT (AUTO) 311 K/uL (150-450); RED BLOOD CELL COUNT(AUTO) 5.15 MIL/uL (4.00-5.20); RED CELL DISTRIBUTION WIDTH 20.7 % (11.5-14.5); WHITE BLOOD COUNT (AUTO) 9.2 K/uL (4.5-11.0)
[2016-08-01 07:16] LABS: ALBUMIN 3.1 g/dL (3.4-5.0); BILIRUBIN,TOTAL 0.4 mg/dL (0.1-1.0); CALCIUM, TOTAL 8.8 mg/dL (8.8-10.5); CREATININE 1.55 mg/dL (0.60-1.30); MAGNESIUM 1.8 mg/dL (1.80-2.40); POTASSIUM 4.3 mmol/L (3.5-5.1); TOTAL PROTEIN, SERUM 6.4 g/dL (6.4-8.2)
[2016-08-01 08:00] VITALS: BP 161/110
[2016-08-01] MEDS: APIXABAN 2.5 MG TABLET PO SCH (08:38)
[2016-08-01] MEDS: DOCUSATE SODIUM 100 MG CAPSULE PO SCH (08:38)
[2016-08-01] MEDS: CLOPIDOGREL BISULFATE 75 MG TABLET PO SCH (08:38)
[2016-08-01] MEDS: OXYGEN THERAPY IH SCH (08:38)
[2016-08-01] MEDS: ALLOPURINOL 300 MG TABLET PO SCH (08:38)
[2016-08-01] MEDS: CARVEDILOL 12.5 MG TABLET PO SCH (08:38)
[2016-08-01] MEDS: PANTOPRAZOLE SODIUM 40 MG DR TABLET PO SCH (08:38)
[2016-08-01] MEDS: FUROSEMIDE 40 MG TABLET PO SCH (08:38)
[2016-08-01] MEDS: ISOSORBIDE MONONITRATE 60 MG ER TABLET PO SCH (08:38)
[2016-08-01] MEDS: SACUBITRIL/VALSARTAN 24-26 MG TABLET PO SCH (08:38)
[2016-08-01] MEDS: RANITIDINE HCL 150 MG TABLET PO SCH (08:39)
[2016-08-01] MEDS: AMIODARONE HCL 200 MG TABLET PO SCH (08:39)
[2016-08-01 08:57] LABS: GLUCOSE,POINT OF CARE 102 MG/DL (70-110)
[2016-08-01 11:30] VITALS: BP 124/77
[2016-08-01 18:07] LABS: GLUCOSE,POINT OF CARE 101 MG/DL (70-110)
[2016-08-01] MEDS ORDERED: CARVEDILOL 12.5 MG TABLET PO SCH (21:00)
[2016-08-01] MEDS ORDERED: SACUBITRIL/VALSARTAN 24-26 MG TABLET PO SCH (21:00)
== END 2016-08-01 15:48 | disposition home or self-care (01) | DRG 194 ==
LOC: EMS 22:25 → 5S 07-28 08:39
PROVIDERS: ADMIT Internal Medicine; ATTEND Internal Medicine
DX: I11.0 Hypertensive heart disease with heart failure (principal); J96.01 Acute respiratory failure with hypoxia; N17.9 Acute kidney failure, unspecified; E44.0 Moderate protein-calorie malnutrition; I48.0 Paroxysmal atrial fibrillation; J44.1 Chronic obstructive pulmonary disease with (acute) exacerbation; Z68.41 Body mass index [BMI] 40.0-44.9, adult; E66.01 Morbid (severe) obesity due to excess calories; E11.9 Type 2 diabetes mellitus without complications; M79.669 Pain in unspecified lower leg; K21.9 Gastro-esophageal reflux disease without esophagitis; E78.00 Pure hypercholesterolemia, unspecified; E78.5 Hyperlipidemia, unspecified; I25.10 Atherosclerotic heart disease of native coronary artery without angina pectoris; E87.5 Hyperkalemia; E03.9 Hypothyroidism, unspecified; F41.9 Anxiety disorder, unspecified; J45.909 Unspecified asthma, uncomplicated; M19.90 Unspecified osteoarthritis, unspecified site; M10.9 Gout, unspecified; G47.30 Sleep apnea, unspecified; Z79.84 Long term (current) use of oral hypoglycemic drugs; Z91.14 Patient's other noncompliance with medication regimen; I25.2 Old myocardial infarction; Z95.5 Presence of coronary angioplasty implant and graft; Z87.891 Personal history of nicotine dependence; Z79.899 Other long term (current) drug therapy; Z88.8 Allergy status to other drugs, medicaments and biological substances; Z79.02 Long term (current) use of antithrombotics/antiplatelets; Z79.01 Long term (current) use of anticoagulants; Z82.49 Family history of ischemic heart disease and other diseases of the circulatory system; Z83.3 Family history of diabetes mellitus; Z82.5 Family history of asthma and other chronic lower respiratory diseases; Z84.1 Family history of disorders of kidney and ureter; I50.21 Acute systolic (congestive) heart failure
CPT/HCPCS: 82962; 83735; 84132; 84443; 85379; 93005; 93306; 94640; 94644; 96374; 96375; 97163; 97530; 99285; J1100; J1940; J2405; J3475; J7050; J7060

== ENCOUNTER 2016-12-22 21:41 | Inpatient (IN) | payer OTHER ==
[~2016-12-22] VITALS: Ht 154.9 cm; Wt 106.6 kg
[~2016-12-22 21:41] MED LIST changes: -ALLO300 PO; -AMIO200T44 PO; -CLOP75 PO; +DSS100 PO; +HYDR-309 PO; -INDO50 PO; -ISOS60TA4 PO; +LISI-662 PO; -RANI150T7 PO; -TRIA0.252 PO
[2016-12-22] MEDS ORDERED: MethylPREDNISolone SOD SUCC 125 MG/2 ML VIAL IVP ONE (21:45)
[2016-12-22] MEDS ORDERED: ALBUTEROL SULFATE 5 MG/ML 20 ML NEB SOLN [BULK] NEB ONE (21:45)
[2016-12-22] MEDS ORDERED: MAGNESIUM SULFATE 2 GM in DEXTROSE 5%-WATER 50 ML IV ONE (21:45)
[2016-12-22] MEDS ORDERED: IPRATROPIUM BROMIDE 0.5 MG/2.5 ML NEB SOLUTION NEB ONE (21:45)
[2016-12-22] MEDS ORDERED: CLOP75 PO (21:56)
[2016-12-22 22:08] LABS: BASOPHILS % (AUTO) 0.2 % (0.0-2.0); EOSINOPHILS % (AUTO) 2.5 % (1.0-6.0); HEMATOCRIT 47.5 % (36-46); HEMOGLOBIN 15.3 g/dL (12.0-16.0); MEAN CORPUSCULAR HEMOGLOBIN 29.2 pg (26.0-34.0); MEAN CORPUSCULAR HGB CONC 32.3 G/dL (31.0-37.0); MEAN CORPUSCULAR VOLUME 90 fL (80-100); MONOCYTES # (AUTO) 0.4 K/uL (0.1-1.0); MONOCYTES % (AUTO) 3.4 % (2.0-9.0); NEUTROPHILS # (AUTO) 9.1 K/uL (1.8-7.7); NEUTROPHILS % (AUTO) 70.9 % (40.0-70.0); PLATELET COUNT (AUTO) 276 K/uL (150-450); RED BLOOD CELL COUNT(AUTO) 5.25 MIL/uL (4.00-5.20); RED CELL DISTRIBUTION WIDTH 21.8 % (11.5-14.5)
[2016-12-22] MEDS ORDERED: LOSA50TA37 PO (22:13)
[2016-12-22] MEDS ORDERED: QUET25TA PO (22:13)
[2016-12-22] MEDS ORDERED: DOCU100C54 PO (22:13)
[2016-12-22] MEDS ORDERED: DIPH50CA35 PO (22:13)
[2016-12-22] MEDS ORDERED: ALLO300 PO (22:13)
[2016-12-22] MEDS ORDERED: ISOS20TA9 PO (22:13)
[2016-12-22 22:15] LABS: CALCIUM, TOTAL 8.9 mg/dL (8.8-10.5); CREATININE 1.45 mg/dL (0.60-1.30); POTASSIUM 4.7 mmol/L (3.5-5.1); PROTHROMBIN TIME 10.3 SEC (9.4-11.6)
[2016-12-22] MEDS ORDERED: 0.9% SODIUM CHLORIDE 5 ML NEB SOLUTION NEB ONE (22:23)
[2016-12-22 22:28] LABS: ALBUMIN 3.7 g/dL (3.4-5.0); BILIRUBIN,TOTAL 0.4 mg/dL (0.1-1.0); PLATELET MORPHOLOGY COMMENT LARGE PLTS PRESENT; TOTAL PROTEIN, SERUM 7.5 g/dL (6.4-8.2)
[2016-12-22] MEDS ORDERED: MAGNESIUM HYDROXIDE SUSPENSION 30 ML UDCUP PO PRN (22:30)
[2016-12-22] MEDS ORDERED: ACETAMINOPHEN 325 MG TABLET PO PRN (22:30)
[2016-12-22] MEDS ORDERED: DEXTROSE 50%-WATER 25 GM/50 ML SYRINGE IVP PRN ×2 (22:30)
[2016-12-22] MEDS ORDERED: BISACODYL 10 MG RECTAL RECTAL SUPPOSITORY PR PRN (22:30)
[2016-12-22] MEDS ORDERED: ONDANSETRON HCL 4 MG/2 ML VIAL IVP PRN (22:30)
[2016-12-22] MEDS ORDERED: SIMVASTATIN 20 MG TABLET PO SCH (22:30)
[2016-12-22] MEDS ORDERED: INSULIN ASPART 100 UNITS/ML SQ PRN (22:30)
[2016-12-22 23:59] VITALS: BP 162/96
[2016-12-23] VITALS (7 sets, daily range): BP systolic 145–173; BP diastolic 89–109
[2016-12-23] MEDS ORDERED: SODIUM CHLORIDE 0.9% 250 ML IV ONE (00:17)
[2016-12-23] MEDS: OxyCODONE HCL/ACETAMINOPHEN 5-325 MG TABLET PO PRN ×4 (00:23→14:11)
[2016-12-23] MEDS: HEPARIN SODIUM,PORCINE 5,000 UNITS/ML VIAL SQ SCH ×4 (00:23→23:44)
[2016-12-23] MEDS: MethylPREDNISolone SOD SUCC 125 MG/2 ML VIAL IVP SCH ×5 (00:23→23:44)
[2016-12-23] MEDS: CefTRIAXone 1 GM/DEXTROSE 50 ML IV SCH ×2 (00:45→23:44)
[2016-12-23] MEDS: AZITHROMYCIN 500 MG/NS 250 ML IV SCH (01:56)
[2016-12-23] MEDS: INSULIN ASPART 100 UNITS/ML SQ PRN ×3 (05:27→20:33)
[2016-12-23 07:22] LABS: GLUCOMETER DEV NAME(LOC) 5N 1M; GLUCOSE,POINT OF CARE 164 MG/DL (70-110)
[2016-12-23] MEDS: ASPIRIN 81 MG CHEWABLE TABLET PO SCH (08:23)
[2016-12-23] MEDS: CLOPIDOGREL BISULFATE 75 MG TABLET PO SCH (08:23)
[2016-12-23] MEDS: PANTOPRAZOLE SODIUM 40 MG DR TABLET PO SCH (08:23)
[2016-12-23] MEDS: DOCUSATE SODIUM 100 MG CAPSULE PO SCH ×2 (08:24→20:31)
[2016-12-23] MEDS: FUROSEMIDE 40 MG/4 ML VIAL IVP SCH ×2 (10:08→21:40)
[2016-12-23] MEDS: ISOSORBIDE MONONITRATE 60 MG ER TABLET PO SCH (14:07)
[2016-12-23] MEDS: CARVEDILOL 25 MG TABLET PO SCH ×2 (14:07→20:31)
[2016-12-23] MEDS: LOSARTAN POTASSIUM 25 MG TABLET PO SCH ×2 (14:08→20:31)
[2016-12-23] MEDS: ATORVASTATIN CALCIUM 20 MG TABLET PO SCH (14:08)
[2016-12-23] MEDS: HYDROCODONE/ACETAMINOPHEN 10-325 MG TABLET PO PRN ×2 (17:33→21:41)
[2016-12-23] MEDS: BUDESONIDE 0.5 MG/2 ML NEB SOLUTION NEB SCH (20:20)
[2016-12-23] MEDS: IPRATROPIUM BROMIDE 0.5 MG/2.5 ML NEB SOLUTION NEB PRN (20:21)
[2016-12-23] MEDS: ALBUTEROL SULFATE 2.5 MG/0.5 ML NEB SOLUTION NEB PRN (20:21)
[2016-12-23 21:43] LABS: GLUCOMETER DEV NAME(LOC) 5N 1M; GLUCOSE,POINT OF CARE 169 MG/DL (70-110)
[2016-12-24] VITALS (7 sets, daily range): BP systolic 131–186; BP diastolic 7–118
[2016-12-24] MEDS: AZITHROMYCIN 500 MG/NS 250 ML IV SCH (01:31)
[2016-12-24] MEDS: HYDROCODONE/ACETAMINOPHEN 10-325 MG TABLET PO PRN ×6 (01:42→22:30)
[2016-12-24] MEDS: MethylPREDNISolone SOD SUCC 125 MG/2 ML VIAL IVP SCH ×2 (05:54→11:42)
[2016-12-24 06:13] LABS: GLUCOMETER DEV NAME(LOC) 5N 1M; GLUCOSE,POINT OF CARE 139 MG/DL (70-110)
[2016-12-24 06:50] LABS: HEMATOCRIT 39.9 % (36-46); HEMOGLOBIN 13.1 g/dL (12.0-16.0); MEAN CORPUSCULAR HEMOGLOBIN 29.7 pg (26.0-34.0); MEAN CORPUSCULAR HGB CONC 32.9 G/dL (31.0-37.0); MEAN CORPUSCULAR VOLUME 90 fL (80-100); PLATELET COUNT (AUTO) 257 K/uL (150-450); RED BLOOD CELL COUNT(AUTO) 4.42 MIL/uL (4.00-5.20); RED CELL DISTRIBUTION WIDTH 21.5 % (11.5-14.5)
[2016-12-24 07:19] LABS: ALBUMIN 3.3 g/dL (3.4-5.0); BILIRUBIN,TOTAL 0.3 mg/dL (0.1-1.0); CALCIUM, TOTAL 8.8 mg/dL (8.8-10.5); CREATININE 1.59 mg/dL (0.60-1.30); POTASSIUM 4.6 mmol/L (3.5-5.1); TOTAL PROTEIN, SERUM 6.4 g/dL (6.4-8.2)
[2016-12-24] MEDS: BUDESONIDE 0.5 MG/2 ML NEB SOLUTION NEB SCH ×2 (09:22→20:02)
[2016-12-24] MEDS: HEPARIN SODIUM,PORCINE 5,000 UNITS/ML VIAL SQ SCH ×2 (09:26→16:37)
[2016-12-24] MEDS: FUROSEMIDE 40 MG/4 ML VIAL IVP SCH ×2 (09:26→21:16)
[2016-12-24] MEDS: CLOPIDOGREL BISULFATE 75 MG TABLET PO SCH (09:28)
[2016-12-24] MEDS: ATORVASTATIN CALCIUM 20 MG TABLET PO SCH (09:28)
[2016-12-24] MEDS: ASPIRIN 81 MG CHEWABLE TABLET PO SCH (09:28)
[2016-12-24] MEDS: CARVEDILOL 25 MG TABLET PO SCH ×2 (09:28→21:16)
[2016-12-24] MEDS: DOCUSATE SODIUM 100 MG CAPSULE PO SCH ×2 (09:28→21:17)
[2016-12-24] MEDS: LOSARTAN POTASSIUM 25 MG TABLET PO SCH ×2 (09:28→21:17)
[2016-12-24] MEDS: ISOSORBIDE MONONITRATE 60 MG ER TABLET PO SCH (09:28)
[2016-12-24] MEDS: PANTOPRAZOLE SODIUM 40 MG DR TABLET PO SCH (09:28)
[2016-12-24] MEDS: AmLODIPine BESYLATE 5 MG TABLET PO SCH (10:01)
[2016-12-24 10:45] LABS: BAND NEUTROPHILS % (MANUAL) 3 % (1-5); LYMPHOCYTES % (MANUAL) 5 % (22-44); MONOCYTES % (MANUAL) 4 % (2-9); SEGMENTED NEUTROPHILS % 88 % (40-70)
[2016-12-24 10:47] LABS: PLATELET MORPHOLOGY COMMENT GIANT PLTS PRESENT
[2016-12-24] MEDS: INSULIN ASPART 100 UNITS/ML SQ PRN (11:44)
[2016-12-24] MEDS ORDERED: CARV25 PO (11:54)
[2016-12-24] MEDS ORDERED: ISOS60TA4 PO (11:54)
[2016-12-24] MEDS: MethylPREDNISolone SOD SUCC 40 MG/ML VIAL IVP SCH ×2 (11:57→17:35)
[2016-12-24] MEDS: IPRATROPIUM BROMIDE 0.5 MG/2.5 ML NEB SOLUTION NEB PRN ×2 (17:13→20:02)
[2016-12-24] MEDS: ALBUTEROL SULFATE 2.5 MG/0.5 ML NEB SOLUTION NEB PRN ×2 (17:14→20:02)
[2016-12-24] MEDS ORDERED: ZOLPIDEM TARTRATE 5 MG TABLET PO PRN (21:00)
[2016-12-25 00:18] LABS: GLUCOMETER DEV NAME(LOC) 5N 1M; GLUCOSE,POINT OF CARE 142 MG/DL (70-110)
[2016-12-25] MEDS: CefTRIAXone 1 GM/DEXTROSE 50 ML IV SCH (00:28)
[2016-12-25] MEDS: HEPARIN SODIUM,PORCINE 5,000 UNITS/ML VIAL SQ SCH ×2 (00:29→08:15)
[2016-12-25] MEDS: MethylPREDNISolone SOD SUCC 40 MG/ML VIAL IVP SCH ×3 (00:30→12:33)
[2016-12-25] MEDS: AZITHROMYCIN 500 MG/NS 250 ML IV SCH (01:07)
[2016-12-25] MEDS: HYDROCODONE/ACETAMINOPHEN 10-325 MG TABLET PO PRN ×2 (04:46→10:06)
[2016-12-25] MEDS: INSULIN ASPART 100 UNITS/ML SQ PRN (05:54)
[2016-12-25 06:37] LABS: GLUCOMETER DEV NAME(LOC) 5N 2R; GLUCOSE,POINT OF CARE 130 MG/DL (70-110)
[2016-12-25 06:37] LABS: GLUCOMETER DEV NAME(LOC) 5N 2R; GLUCOSE,POINT OF CARE 168 MG/DL (70-110)
[2016-12-25 06:42] LABS: GLUCOMETER DEV NAME(LOC) 5N 2R; GLUCOSE,POINT OF CARE 113 MG/DL (70-110)
[2016-12-25 06:42] LABS: GLUCOMETER DEV NAME(LOC) 5N 2R; GLUCOSE,POINT OF CARE 152 MG/DL (70-110)
[2016-12-25 07:16] VITALS: BP 153/84
[2016-12-25 07:36] LABS: HEMATOCRIT 40.2 % (36-46); HEMOGLOBIN 13.1 g/dL (12.0-16.0); MEAN CORPUSCULAR HEMOGLOBIN 29.4 pg (26.0-34.0); MEAN CORPUSCULAR HGB CONC 32.5 G/dL (31.0-37.0); MEAN CORPUSCULAR VOLUME 90 fL (80-100); PLATELET COUNT (AUTO) 252 K/uL (150-450); RED BLOOD CELL COUNT(AUTO) 4.45 MIL/uL (4.00-5.20); RED CELL DISTRIBUTION WIDTH 21.7 % (11.5-14.5)
[2016-12-25 07:54] LABS: ALBUMIN 3.2 g/dL (3.4-5.0); BILIRUBIN,TOTAL 0.3 mg/dL (0.1-1.0); CALCIUM, TOTAL 8.5 mg/dL (8.8-10.5); CREATININE 1.64 mg/dL (0.60-1.30); POTASSIUM 3.7 mmol/L (3.5-5.1); TOTAL PROTEIN, SERUM 6.2 g/dL (6.4-8.2)
[2016-12-25] MEDS: FUROSEMIDE 40 MG/4 ML VIAL IVP SCH (08:15)
[2016-12-25] MEDS: LOSARTAN POTASSIUM 25 MG TABLET PO SCH (08:16)
[2016-12-25] MEDS: ATORVASTATIN CALCIUM 20 MG TABLET PO SCH (08:16)
[2016-12-25] MEDS: CLOPIDOGREL BISULFATE 75 MG TABLET PO SCH (08:16)
[2016-12-25] MEDS: ASPIRIN 81 MG CHEWABLE TABLET PO SCH (08:16)
[2016-12-25] MEDS: CARVEDILOL 25 MG TABLET PO SCH (08:16)
[2016-12-25] MEDS: ISOSORBIDE MONONITRATE 60 MG ER TABLET PO SCH (08:16)
[2016-12-25] MEDS: PANTOPRAZOLE SODIUM 40 MG DR TABLET PO SCH (08:17)
[2016-12-25] MEDS: DOCUSATE SODIUM 100 MG CAPSULE PO SCH (08:17)
[2016-12-25] MEDS: AmLODIPine BESYLATE 5 MG TABLET PO SCH (09:00)
[2016-12-25] MEDS ORDERED: PredniSONE 20 MG TABLET PO SCH (09:00)
[2016-12-25 09:02] LABS: BAND NEUTROPHILS % (MANUAL) 1 % (1-5); LYMPHOCYTES % (MANUAL) 3 % (22-44); MONOCYTES % (MANUAL) 7 % (2-9); SEGMENTED NEUTROPHILS % 89 % (40-70)
[2016-12-25] MEDS: ALBUTEROL SULFATE 2.5 MG/0.5 ML NEB SOLUTION NEB PRN (10:33)
[2016-12-25] MEDS: IPRATROPIUM BROMIDE 0.5 MG/2.5 ML NEB SOLUTION NEB PRN (10:33)
[2016-12-25] MEDS: BUDESONIDE 0.5 MG/2 ML NEB SOLUTION NEB SCH (10:33)
[2016-12-25 11:36] VITALS: BP 145/89
[2016-12-25 15:53] LABS: GLUCOMETER DEV NAME(LOC) 5N 2R; GLUCOSE,POINT OF CARE 129 MG/DL (70-110)
[2016-12-25 22:03] LABS: GLUCOMETER DEV NAME(LOC) 5N 1M; GLUCOSE,POINT OF CARE 182 MG/DL (70-110)
== END 2016-12-25 13:35 | disposition home or self-care (01) | DRG 140 ==
LOC: EMS 21:43 → 5N 22:35
PROVIDERS: ADMIT Internal Medicine; ATTEND Internal Medicine
DX: J44.0 Chronic obstructive pulmonary disease with (acute) lower respiratory infection (principal); I50.43 Acute on chronic combined systolic (congestive) and diastolic (congestive) heart failure; I27.20 Pulmonary hypertension, unspecified; J96.01 Acute respiratory failure with hypoxia; E44.0 Moderate protein-calorie malnutrition; J96.02 Acute respiratory failure with hypercapnia; E11.22 Type 2 diabetes mellitus with diabetic chronic kidney disease; Z68.41 Body mass index [BMI] 40.0-44.9, adult; E66.01 Morbid (severe) obesity due to excess calories; I48.0 Paroxysmal atrial fibrillation; I13.0 Hypertensive heart and chronic kidney disease with heart failure and stage 1 through stage 4 chronic kidney disease, or unspecified chronic kidney disease; J44.1 Chronic obstructive pulmonary disease with (acute) exacerbation; E03.9 Hypothyroidism, unspecified; E78.00 Pure hypercholesterolemia, unspecified; E78.5 Hyperlipidemia, unspecified; G47.33 Obstructive sleep apnea (adult) (pediatric); G89.4 Chronic pain syndrome; I25.110 Atherosclerotic heart disease of native coronary artery with unstable angina pectoris; J20.9 Acute bronchitis, unspecified; K21.9 Gastro-esophageal reflux disease without esophagitis; M10.9 Gout, unspecified; N18.9 Chronic kidney disease, unspecified; F17.210 Nicotine dependence, cigarettes, uncomplicated; Z91.19 Patient's noncompliance with other medical treatment and regimen; Z95.5 Presence of coronary angioplasty implant and graft; Z95.810 Presence of automatic (implantable) cardiac defibrillator; Z88.8 Allergy status to other drugs, medicaments and biological substances; Z82.49 Family history of ischemic heart disease and other diseases of the circulatory system; Z82.5 Family history of asthma and other chronic lower respiratory diseases; Z83.3 Family history of diabetes mellitus
CPT/HCPCS: 71250; 82962; 83735; 84145; 87081; 93005; 93306; 94640; 94644; 96365; 96375; 99285; J0456; J0696; J1644; J1940; J2920; J2930; J3475; J7050; J7060

== ENCOUNTER 2017-01-05 17:32 | Inpatient (IN) | payer OTHER ==
[~2017-01-05] VITALS: Ht 157.5 cm; Wt 105.9 kg
[~2017-01-05 17:32] MED LIST changes: +ALLO300 PO; -APIX2.5T PO; -CARV12 PO; +CARV25 PO; +CLOP75 PO; +DIPH50CA35 PO; +DOCU100C54 PO; -DSS100 PO; -HYDR-309 PO; +ISOS60TA4 PO; -LISI-662 PO; +LOSA50TA37 PO; +QUET25TA PO
[2017-01-05 17:52] LABS: GLUCOSE,POINT OF CARE 146 MG/DL (70-110)
[2017-01-05] MEDS ORDERED: ONDANSETRON HCL 4 MG/2 ML VIAL IVP ONE (18:15)
[2017-01-05] MEDS ORDERED: DiphenhydrAMINE HCL 50 MG/ML VIAL IVP ONE (18:15)
[2017-01-05 18:42] LABS: HEMOGLOBIN 14.7 g/dL (12.0-16.0); MEAN CORPUSCULAR HGB CONC 30.6 G/dL (31.0-37.0); MEAN CORPUSCULAR VOLUME 92 fL (80-100); PLATELET COUNT (AUTO) 278 K/uL (150-450); RED BLOOD CELL COUNT(AUTO) 5.24 MIL/uL (4.00-5.20); RED CELL DISTRIBUTION WIDTH 21.3 % (11.5-14.5)
[2017-01-05 18:54] LABS: ANION GAP 6 mmol/L (8-16); CALCIUM, TOTAL 9.5 mg/dL (8.8-10.5); CARBON DIOXIDE 29 mmol/L (22-29); CHLORIDE 104 mmol/L (98-107); GLOMERULAR FILTR. RATE CALC 36 mL/min (>60); INR 0.9 (0.9-1.1); POTASSIUM 4.9 mmol/L (3.5-5.1); SODIUM SERUM 139 mmol/L (136-145); UREA NITROGEN, BLOOD 49 mg/dL (7-18)
[2017-01-05 19:08] LABS: ALANINE AMINOTRANSFERASE 20 U/L (12-78); ALBUMIN 3.4 g/dL (3.4-5.0); ASPARTATE AMINOTRANSFERASE 14 U/L (15-37); BILIRUBIN,TOTAL 0.2 mg/dL (0.1-1.0); CREATINE KINASE, TOTAL 42 U/L (26-192); THYROID STIMULATING HORMONE 1.24 uIU/mL (0.36-3.74); TOTAL PROTEIN, SERUM 6.9 g/dL (6.4-8.2)
[2017-01-05 19:09] LABS: B-TYPE NATRIURETIC PEPTIDE 451 pg/mL (0-100)
[2017-01-05] MEDS ORDERED: ASPIRIN 81 MG CHEWABLE TABLET PO ONE (19:30)
[2017-01-05] MEDS ORDERED: KETOROLAC TROMETHAMINE 30 MG/ML VIAL IVP ONE (19:30)
[2017-01-05 19:41] LABS: BAND NEUTROPHILS % (MANUAL) 1 % (1-5); EOSINOPHILS % (MANUAL) 5 % (1-6); LYMPHOCYTES % (MANUAL) 17 % (22-44); TOTAL CELLS COUNTED 100
[2017-01-05 19:42] LABS: RBC MORPHOLOGY COMMENT ABNORMAL RBC MORPH
[2017-01-05] MEDS ORDERED: HYDROCODONE/ACETAMINOPHEN 10-325 MG TABLET PO ONE (20:00)
[2017-01-05] MEDS ORDERED: HydrALAZINE HCL 20 MG/ML VIAL IVP ONE (20:30)
[2017-01-05 21:05] LABS: APPEARANCE,URINE CLEAR (CLEAR); GLUCOSE, URINE (UA) NEGATIVE (NEGATIVE); KETONES,URINE NEGATIVE (NEGATIVE); LEUKOCYTE ESTERASE ,URINE NEGATIVE (NEGATIVE); OCCULT BLOOD,URINE NEGATIVE (NEGATIVE); PROTEIN,URINE POS 1+ (NEGATIVE)
[2017-01-05 21:14] LABS: ADD UA MICROSCOPIC NO
[2017-01-05 21:22] VITALS: BP 151/76
[2017-01-05] MEDS ORDERED: BISACODYL 10 MG RECTAL RECTAL SUPPOSITORY PR PRN (21:30)
[2017-01-05] MEDS ORDERED: INSULIN ASPART 100 UNITS/ML SQ PRN (21:30)
[2017-01-05] MEDS ORDERED: DEXTROSE 50%-WATER 25 GM/50 ML SYRINGE IVP PRN (21:30)
[2017-01-05] MEDS: OxyCODONE HCL/ACETAMINOPHEN 5-325 MG TABLET PO PRN (21:43)
[2017-01-05] MEDS: SIMVASTATIN 40 MG TABLET PO SCH (21:44)
[2017-01-05] MEDS: ZOLPIDEM TARTRATE 10 MG TABLET PO PRN (21:57)
[2017-01-05 23:26] VITALS: BP 138/50
[2017-01-05] MEDS: HEPARIN SODIUM,PORCINE 5,000 UNITS/ML VIAL SQ SCH (23:31)
[2017-01-06] MEDS: OxyCODONE HCL/ACETAMINOPHEN 5-325 MG TABLET PO PRN ×5 (02:19→20:38)
[2017-01-06 05:12] VITALS: BP 140/89
[2017-01-06] MEDS: ACETAMINOPHEN 325 MG TABLET PO PRN ×2 (05:32→08:32)
[2017-01-06] MEDS: LEVOTHYROXINE SODIUM 88 MCG TABLET PO SCH (05:32)
[2017-01-06 06:43] LABS: GLUCOSE,POINT OF CARE 150 MG/DL (70-110)
[2017-01-06 07:23] VITALS: BP 135/77
[2017-01-06] MEDS: HEPARIN SODIUM,PORCINE 5,000 UNITS/ML VIAL SQ SCH ×3 (08:30→23:56)
[2017-01-06] MEDS: LOSARTAN POTASSIUM 25 MG TABLET PO SCH ×2 (08:31→20:04)
[2017-01-06] MEDS: FUROSEMIDE 40 MG TABLET PO SCH (08:31)
[2017-01-06] MEDS: DOCUSATE SODIUM 100 MG CAPSULE PO SCH ×2 (08:31→20:05)
[2017-01-06] MEDS: CARVEDILOL 6.25 MG TABLET PO SCH ×2 (08:31→20:04)
[2017-01-06] MEDS: ASPIRIN 81 MG CHEWABLE TABLET PO SCH (08:31)
[2017-01-06] MEDS: CLOPIDOGREL BISULFATE 75 MG TABLET PO SCH (08:31)
[2017-01-06] MEDS: PANTOPRAZOLE SODIUM 40 MG DR TABLET PO SCH (08:31)
[2017-01-06 11:20] VITALS: BP 142/100
[2017-01-06 15:09] VITALS: BP 129/58
[2017-01-06] MEDS ORDERED: 0.9% SODIUM CHLORIDE 5 ML NEB SOLUTION NEB ONE (19:22)
[2017-01-06] MEDS: IPRATROPIUM BROMIDE 0.5 MG/2.5 ML NEB SOLUTION NEB PRN (19:29)
[2017-01-06] MEDS: ALBUTEROL SULFATE 2.5 MG/0.5 ML NEB SOLUTION NEB PRN (19:29)
[2017-01-06] MEDS ORDERED: MAG HYDROX/AL HYDROX/SIMETH 30 ML SUSP UDCUP PO PRN (19:45)
[2017-01-06] MEDS: SIMVASTATIN 40 MG TABLET PO SCH (20:05)
[2017-01-06 20:39] VITALS: BP 142/68
[2017-01-06 23:38] VITALS: BP 153/98
[2017-01-06] MEDS ORDERED: ONDANSETRON HCL 4 MG/2 ML VIAL IVP PRN (23:45)
[2017-01-06] MEDS ORDERED: DIGOXIN 250 MCG/ML 2 ML AMP IVP ONE (23:45)
[2017-01-06] MEDS: ZOLPIDEM TARTRATE 10 MG TABLET PO PRN (23:56)
[2017-01-07] MEDS: OxyCODONE HCL/ACETAMINOPHEN 5-325 MG TABLET PO PRN ×4 (00:39→16:21)
[2017-01-07] MEDS ORDERED: DIGOXIN 250 MCG/ML 2 ML AMP IVP ONE (02:30)
[2017-01-07 03:27] LABS: GLUCOSE,POINT OF CARE 117 MG/DL (70-110)
[2017-01-07 03:27] LABS: GLUCOSE,POINT OF CARE 108 MG/DL (70-110)
[2017-01-07 04:24] VITALS: BP 150/99
[2017-01-07 04:32] LABS: GLUCOSE,POINT OF CARE 109 MG/DL (70-110)
[2017-01-07] MEDS: LEVOTHYROXINE SODIUM 88 MCG TABLET PO SCH (06:15)
[2017-01-07 07:45] VITALS: BP 151/76
[2017-01-07] MEDS: HEPARIN SODIUM,PORCINE 5,000 UNITS/ML VIAL SQ SCH ×2 (08:19→16:23)
[2017-01-07] MEDS: CARVEDILOL 6.25 MG TABLET PO SCH (08:19)
[2017-01-07] MEDS: DOCUSATE SODIUM 100 MG CAPSULE PO SCH (08:19)
[2017-01-07] MEDS: ASPIRIN 81 MG CHEWABLE TABLET PO SCH (08:19)
[2017-01-07] MEDS: FUROSEMIDE 40 MG TABLET PO SCH (08:20)
[2017-01-07] MEDS: LOSARTAN POTASSIUM 25 MG TABLET PO SCH (08:20)
[2017-01-07] MEDS: PANTOPRAZOLE SODIUM 40 MG DR TABLET PO SCH (08:20)
[2017-01-07] MEDS: CLOPIDOGREL BISULFATE 75 MG TABLET PO SCH (08:20)
[2017-01-07] MEDS: IPRATROPIUM BROMIDE 0.5 MG/2.5 ML NEB SOLUTION NEB PRN ×2 (09:19→15:18)
[2017-01-07] MEDS: ALBUTEROL SULFATE 2.5 MG/0.5 ML NEB SOLUTION NEB PRN ×2 (09:19→15:18)
[2017-01-07 11:35] VITALS: BP 149/101
[2017-01-07 15:39] VITALS: BP 173/87
[2017-01-07 16:23] VITALS: BP 154/101
[2017-01-08 06:12] LABS: GLUCOSE,POINT OF CARE 103 MG/DL (70-110)
[2017-01-08 22:52] LABS: GLUCOSE,POINT OF CARE 103 MG/DL (70-110)
== END 2017-01-07 19:00 | disposition home or self-care (01) | DRG 58 ==
LOC: EMS 17:42 → 5S 19:41
PROVIDERS: ADMIT Internal Medicine; ATTEND Internal Medicine
DX: R20.0 Anesthesia of skin (principal); E11.22 Type 2 diabetes mellitus with diabetic chronic kidney disease; E44.0 Moderate protein-calorie malnutrition; I13.0 Hypertensive heart and chronic kidney disease with heart failure and stage 1 through stage 4 chronic kidney disease, or unspecified chronic kidney disease; I27.20 Pulmonary hypertension, unspecified; Z68.41 Body mass index [BMI] 40.0-44.9, adult; I50.40 Unspecified combined systolic (congestive) and diastolic (congestive) heart failure; E66.01 Morbid (severe) obesity due to excess calories; N18.3 Chronic kidney disease, stage 3 (moderate); I25.10 Atherosclerotic heart disease of native coronary artery without angina pectoris; M25.559 Pain in unspecified hip; J44.9 Chronic obstructive pulmonary disease, unspecified; K21.9 Gastro-esophageal reflux disease without esophagitis; E78.00 Pure hypercholesterolemia, unspecified; E03.9 Hypothyroidism, unspecified; F41.9 Anxiety disorder, unspecified; M10.9 Gout, unspecified; F17.210 Nicotine dependence, cigarettes, uncomplicated; G89.29 Other chronic pain; Z86.73 Personal history of transient ischemic attack (TIA), and cerebral infarction without residual deficits; Z88.8 Allergy status to other drugs, medicaments and biological substances; Z79.899 Other long term (current) drug therapy; Z79.02 Long term (current) use of antithrombotics/antiplatelets; Z79.84 Long term (current) use of oral hypoglycemic drugs; Z82.49 Family history of ischemic heart disease and other diseases of the circulatory system; Z82.5 Family history of asthma and other chronic lower respiratory diseases; Z83.3 Family history of diabetes mellitus; Z84.1 Family history of disorders of kidney and ureter; Z83.6 Family history of other diseases of the respiratory system; Z95.5 Presence of coronary angioplasty implant and graft
CPT/HCPCS: 70450; 82962; 84443; 87081; 93005; 93880; 94640; 96374; 96375; 99285; 99406; J0360; J1160; J1200; J1644; J1885; J2405

== ENCOUNTER 2017-02-18 22:31 | Inpatient (IN) | payer OTHER ==
[~2017-02-18] VITALS: Ht 160 cm; Wt 106.4 kg
[2017-02-18] MEDS ORDERED: 0.9% SODIUM CHLORIDE 5 ML NEB SOLUTION NEB ONE (23:07)
[2017-02-18] MEDS ORDERED: NITROGLYCERIN 2% (1 GM=INCH) PACKET TP ONE (23:15)
[2017-02-18] MEDS ORDERED: FUROSEMIDE 40 MG/4 ML VIAL IVP ONE (23:15)
[2017-02-18] MEDS ORDERED: ALBUTEROL SULFATE 5 MG/ML 20 ML NEB SOLN [BULK] NEB ONE (23:15)
[2017-02-18] MEDS ORDERED: IPRATROPIUM BROMIDE 0.5 MG/2.5 ML NEB SOLUTION NEB ONE (23:15)
[2017-02-19] VITALS (8 sets, daily range): BP systolic 112–140; BP diastolic 53–96
[2017-02-19 00:01] LABS: BASOPHILS % (AUTO) 0.3 % (0.0-2.0); EOSINOPHILS % (AUTO) 1.2 % (1.0-6.0); HEMATOCRIT 43.6 % (36-46); HEMOGLOBIN 14.1 g/dL (12.0-16.0); LYMPHOCYTES % (AUTO) 18.6 % (22.0-44.0); MEAN CORPUSCULAR HEMOGLOBIN 29.6 pg (26.0-34.0); MEAN CORPUSCULAR HGB CONC 32.3 G/dL (31.0-37.0); MEAN CORPUSCULAR VOLUME 92 fL (80-100); MONOCYTES # (AUTO) 0.9 K/uL (0.1-1.0); MONOCYTES % (AUTO) 5.5 % (2.0-9.0); NEUTROPHILS # (AUTO) 11.8 K/uL (1.8-7.7); NEUTROPHILS % (AUTO) 74.4 % (40.0-70.0); PLATELET COUNT (AUTO) 322 K/uL (150-450); RED BLOOD CELL COUNT(AUTO) 4.76 MIL/uL (4.00-5.20); RED CELL DISTRIBUTION WIDTH 20.2 % (11.5-14.5)
[2017-02-19 00:05] LABS: ANION GAP 6 mmol/L (8-16); CALCIUM, TOTAL 9.2 mg/dL (8.8-10.5); CARBON DIOXIDE 29 mmol/L (22-29); CHLORIDE 106 mmol/L (98-107); CREATININE 1.31 mg/dL (0.60-1.30); GLOMERULAR FILTR. RATE CALC 42 mL/min (>60); GLUCOSE,RANDOM 121 mg/dL (70-110); POTASSIUM 4.2 mmol/L (3.5-5.1); PROTHROMBIN TIME 10.2 SEC (9.4-11.6); SODIUM SERUM 141 mmol/L (136-145); UREA NITROGEN, BLOOD 27 mg/dL (7-18)
[2017-02-19 00:11] LABS: ALANINE AMINOTRANSFERASE 19 U/L (12-78); ALBUMIN 3.7 g/dL (3.4-5.0); ALKALINE PHOSPHATASE 77 U/L (46-116); ASPARTATE AMINOTRANSFERASE 17 U/L (15-37); BILIRUBIN,TOTAL 0.3 mg/dL (0.1-1.0); CREATINE KINASE, TOTAL 70 U/L (26-192); TOTAL PROTEIN, SERUM 7.3 g/dL (6.4-8.2)
[2017-02-19 00:19] LABS: B-TYPE NATRIURETIC PEPTIDE 1270 pg/mL (0-100)
[2017-02-19 00:59] LABS: APPEARANCE,URINE CLEAR (CLEAR); BILIRUBIN,URINE NEGATIVE (NEGATIVE); GLUCOSE, URINE (UA) NEGATIVE (NEGATIVE); KETONES,URINE NEGATIVE (NEGATIVE); LEUKOCYTE ESTERASE ,URINE NEGATIVE (NEGATIVE); NITRATE,URINE NEGATIVE (NEGATIVE); OCCULT BLOOD,URINE NEGATIVE (NEGATIVE); PH,URINE 5.5 (5.0-8.0); PROTEIN,URINE POS 1+ (NEGATIVE); UROBILINOGEN,URINE 0.2 mg/dL (<=1.0)
[2017-02-19] MEDS ORDERED: ASPIRIN 81 MG CHEWABLE TABLET PO ONE (01:00)
[2017-02-19 02:07] LABS: GLUCOSE,POINT OF CARE 114 MG/DL (70-110)
[2017-02-19 07:03] LABS: GLUCOSE,POINT OF CARE 114 MG/DL (70-110)
[2017-02-19] MEDS ORDERED: HYDROCODONE/ACETAMINOPHEN 10-325 MG TABLET PO PRN (08:15)
[2017-02-19] MEDS ORDERED: FUROSEMIDE 40 MG TABLET PO SCH (14:00)
[2017-02-19] MEDS: ALLOPURINOL 300 MG TABLET PO SCH (14:40)
[2017-02-19] MEDS: ISOSORBIDE MONONITRATE 60 MG ER TABLET PO SCH (14:40)
[2017-02-19] MEDS: CLOPIDOGREL BISULFATE 75 MG TABLET PO SCH (14:40)
[2017-02-19] MEDS: LOSARTAN POTASSIUM 50 MG TABLET PO SCH (14:40)
[2017-02-19] MEDS: NICOTINE 21 MG/24 HOUR PATCH TD SCH (14:41)
[2017-02-19] MEDS: CARVEDILOL 25 MG TABLET PO SCH ×2 (15:54→21:00)
[2017-02-19] MEDS: GlipiZIDE 5 MG TABLET PO SCH (15:55)
[2017-02-19] MEDS: HYDROCODONE/ACETAMINOPHEN 10-325 MG TABLET PO PRN ×2 (18:04→22:45)
[2017-02-19] MEDS: FUROSEMIDE 40 MG/4 ML VIAL IVP SCH ×2 (18:04→21:00)
[2017-02-19 19:28] LABS: GLUCOSE,POINT OF CARE 93 MG/DL (70-110)
[2017-02-19] MEDS: MONTELUKAST SODIUM 10 MG TABLET PO SCH (22:45)
[2017-02-19] MEDS: DiphenhydrAMINE HCL 50 MG CAPSULE PO SCH (22:45)
[2017-02-19] MEDS: DOCUSATE SODIUM 100 MG CAPSULE PO SCH (22:45)
[2017-02-19] MEDS: POTASSIUM CHLORIDE 10 MEQ ER TABLET PO SCH (22:45)
[2017-02-19] MEDS: ATORVASTATIN CALCIUM 20 MG TABLET PO SCH (22:45)
[2017-02-20] MEDS: HYDROCODONE/ACETAMINOPHEN 10-325 MG TABLET PO PRN ×3 (03:59→17:09)
[2017-02-20 04:08] VITALS: BP 111/69
[2017-02-20] MEDS ORDERED: PNEUMOCOCCAL VACCINE POLYVALENT 0.5 ML VIAL [PPSV23] IM ONE (04:30)
[2017-02-20] MEDS ORDERED: MISC MED-CONVERTED FROM AMBULATORY (Levothyroxine Sodium 175 MCG) PO SCH (06:30)
[2017-02-20] MEDS: LEVOTHYROXINE SODIUM 75 MCG TABLET PO SCH (06:45)
[2017-02-20] MEDS: LEVOTHYROXINE SODIUM 100 MCG TABLET PO SCH (06:45)
[2017-02-20] MEDS: GlipiZIDE 5 MG TABLET PO SCH (06:45)
[2017-02-20 07:10] VITALS: BP 105/63
[2017-02-20] MEDS: LOSARTAN POTASSIUM 50 MG TABLET PO SCH (08:48)
[2017-02-20] MEDS: FUROSEMIDE 40 MG/4 ML VIAL IVP SCH ×2 (08:48→21:31)
[2017-02-20] MEDS: DOCUSATE SODIUM 100 MG CAPSULE PO SCH ×2 (08:48→21:31)
[2017-02-20] MEDS: CARVEDILOL 25 MG TABLET PO SCH ×2 (08:48→21:31)
[2017-02-20] MEDS: ISOSORBIDE MONONITRATE 60 MG ER TABLET PO SCH (08:48)
[2017-02-20] MEDS: ALLOPURINOL 300 MG TABLET PO SCH (08:48)
[2017-02-20] MEDS: NICOTINE 21 MG/24 HOUR PATCH TD SCH (08:48)
[2017-02-20] MEDS: QUEtiapine FUMARATE 25 MG TABLET PO SCH (08:48)
[2017-02-20] MEDS: CLOPIDOGREL BISULFATE 75 MG TABLET PO SCH (08:48)
[2017-02-20] MEDS: POTASSIUM CHLORIDE 10 MEQ ER TABLET PO SCH ×2 (08:49→21:31)
[2017-02-20] MEDS ORDERED: SIMVASTATIN 40 MG TABLET PO SCH (09:00)
[2017-02-20 11:33] VITALS: BP 106/66
[2017-02-20 16:00] VITALS: BP 119/69
[2017-02-20] MEDS ORDERED: MAGNESIUM HYDROXIDE SUSPENSION 30 ML UDCUP PO PRN (16:15)
[2017-02-20] MEDS ORDERED: HYDROCODONE/ACETAMINOPHEN 5-325 MG TABLET PO PRN (16:15)
[2017-02-20] MEDS ORDERED: ZOLPIDEM TARTRATE 5 MG TABLET PO PRN (16:15)
[2017-02-20] MEDS ORDERED: ALBUTEROL SULFATE 2.5 MG/0.5 ML NEB SOLUTION NEB PRN (16:15)
[2017-02-20] MEDS ORDERED: MORPHINE SULFATE 2 MG/ML SYRINGE IVP PRN (16:15)
[2017-02-20] MEDS ORDERED: BISACODYL 10 MG RECTAL RECTAL SUPPOSITORY PR PRN (16:15)
[2017-02-20] MEDS ORDERED: ACETAMINOPHEN 325 MG TABLET PO PRN (16:15)
[2017-02-20] MEDS ORDERED: ONDANSETRON HCL 4 MG/2 ML VIAL IVP PRN (16:15)
[2017-02-20] MEDS ORDERED: IPRATROPIUM BROMIDE 0.5 MG/2.5 ML NEB SOLUTION NEB PRN (16:15)
[2017-02-20 16:45] LABS: BASOPHILS % (AUTO) 0.4 % (0.0-2.0); EOSINOPHILS % (AUTO) 3.9 % (1.0-6.0); HEMATOCRIT 41.2 % (36-46); HEMOGLOBIN 13.4 g/dL (12.0-16.0); LYMPHOCYTES # (AUTO) 1.4 K/uL (1.0-4.8); LYMPHOCYTES % (AUTO) 13.3 % (22.0-44.0); MEAN CORPUSCULAR HGB CONC 32.6 G/dL (31.0-37.0); MEAN CORPUSCULAR VOLUME 92 fL (80-100); MONOCYTES # (AUTO) 0.9 K/uL (0.1-1.0); MONOCYTES % (AUTO) 8.3 % (2.0-9.0); NEUTROPHILS # (AUTO) 7.8 K/uL (1.8-7.7); NEUTROPHILS % (AUTO) 74.1 % (40.0-70.0); PLATELET COUNT (AUTO) 300 K/uL (150-450); RED BLOOD CELL COUNT(AUTO) 4.48 MIL/uL (4.00-5.20)
[2017-02-20 16:55] LABS: CREATININE 1.52 mg/dL (0.60-1.30); POTASSIUM 4.7 mmol/L (3.5-5.1)
[2017-02-20 17:01] LABS: BILIRUBIN,TOTAL 0.4 mg/dL (0.1-1.0); TOTAL PROTEIN, SERUM 6.4 g/dL (6.4-8.2)
[2017-02-20 17:25] LABS: PLATELET MORPHOLOGY COMMENT NORMAL
[2017-02-20 19:10] VITALS: BP 116/75
[2017-02-20] MEDS: MONTELUKAST SODIUM 10 MG TABLET PO SCH (21:31)
[2017-02-20] MEDS: ATORVASTATIN CALCIUM 20 MG TABLET PO SCH (21:31)
[2017-02-20] MEDS: DiphenhydrAMINE HCL 50 MG CAPSULE PO SCH (21:31)
[2017-02-20 23:36] VITALS: BP 102/61
[2017-02-20] MEDS: HEPARIN SODIUM,PORCINE 5,000 UNITS/ML VIAL SQ SCH (23:42)
[2017-02-21] MEDS: HYDROCODONE/ACETAMINOPHEN 10-325 MG TABLET PO PRN ×5 (02:54→22:18)
[2017-02-21 05:36] VITALS: BP 108/62
[2017-02-21] MEDS: LEVOTHYROXINE SODIUM 75 MCG TABLET PO SCH (05:42)
[2017-02-21] MEDS: LEVOTHYROXINE SODIUM 100 MCG TABLET PO SCH (05:42)
[2017-02-21] MEDS: GlipiZIDE 5 MG TABLET PO SCH (05:42)
[2017-02-21 07:10] LABS: BASOPHILS % (AUTO) 0.1 % (0.0-2.0); EOSINOPHILS % (AUTO) 4.7 % (1.0-6.0); HEMATOCRIT 41.4 % (36-46); HEMOGLOBIN 13.8 g/dL (12.0-16.0); LYMPHOCYTES # (AUTO) 1.5 K/uL (1.0-4.8); LYMPHOCYTES % (AUTO) 14.5 % (22.0-44.0); MEAN CORPUSCULAR HEMOGLOBIN 30.3 pg (26.0-34.0); MEAN CORPUSCULAR HGB CONC 33.4 G/dL (31.0-37.0); MEAN CORPUSCULAR VOLUME 91 fL (80-100); MONOCYTES # (AUTO) 1.3 K/uL (0.1-1.0); MONOCYTES % (AUTO) 12.9 % (2.0-9.0); NEUTROPHILS # (AUTO) 6.9 K/uL (1.8-7.7); NEUTROPHILS % (AUTO) 67.8 % (40.0-70.0); PLATELET COUNT (AUTO) 302 K/uL (150-450); RED BLOOD CELL COUNT(AUTO) 4.56 MIL/uL (4.00-5.20); RED CELL DISTRIBUTION WIDTH 19.7 % (11.5-14.5)
[2017-02-21 07:19] LABS: ALBUMIN 3.1 g/dL (3.4-5.0); BILIRUBIN,TOTAL 0.3 mg/dL (0.1-1.0); CALCIUM, TOTAL 9.1 mg/dL (8.8-10.5); CREATININE 1.54 mg/dL (0.60-1.30); POTASSIUM 4.5 mmol/L (3.5-5.1); TOTAL PROTEIN, SERUM 6.6 g/dL (6.4-8.2)
[2017-02-21 07:40] VITALS: BP 123/75
[2017-02-21] MEDS: HEPARIN SODIUM,PORCINE 5,000 UNITS/ML VIAL SQ SCH ×3 (07:51→23:26)
[2017-02-21] MEDS: FUROSEMIDE 40 MG/4 ML VIAL IVP SCH (07:51)
[2017-02-21] MEDS: PANTOPRAZOLE SODIUM 40 MG/VIAL IVP SCH (07:51)
[2017-02-21] MEDS: LOSARTAN POTASSIUM 50 MG TABLET PO SCH (07:52)
[2017-02-21] MEDS: POTASSIUM CHLORIDE 10 MEQ ER TABLET PO SCH ×2 (07:52→20:26)
[2017-02-21] MEDS: CLOPIDOGREL BISULFATE 75 MG TABLET PO SCH (07:52)
[2017-02-21] MEDS: ISOSORBIDE MONONITRATE 60 MG ER TABLET PO SCH (07:52)
[2017-02-21] MEDS: ALLOPURINOL 300 MG TABLET PO SCH (07:52)
[2017-02-21] MEDS: CARVEDILOL 25 MG TABLET PO SCH ×2 (07:52→20:26)
[2017-02-21] MEDS: QUEtiapine FUMARATE 25 MG TABLET PO SCH (07:52)
[2017-02-21] MEDS: DOCUSATE SODIUM 100 MG CAPSULE PO SCH ×2 (07:53→20:26)
[2017-02-21] MEDS: NICOTINE 21 MG/24 HOUR PATCH TD SCH (07:53)
[2017-02-21 19:27] VITALS: BP 106/69
[2017-02-21] MEDS: ATORVASTATIN CALCIUM 20 MG TABLET PO SCH (20:26)
[2017-02-21] MEDS: DiphenhydrAMINE HCL 50 MG CAPSULE PO SCH (20:26)
[2017-02-21] MEDS: MONTELUKAST SODIUM 10 MG TABLET PO SCH (20:26)
[2017-02-21 23:18] VITALS: BP 111/71
[2017-02-22] MEDS: HYDROCODONE/ACETAMINOPHEN 10-325 MG TABLET PO PRN ×3 (02:26→12:06)
[2017-02-22 04:19] VITALS: BP 124/84
[2017-02-22] MEDS: GlipiZIDE 5 MG TABLET PO SCH (05:54)
[2017-02-22] MEDS: LEVOTHYROXINE SODIUM 100 MCG TABLET PO SCH (05:54)
[2017-02-22] MEDS: LEVOTHYROXINE SODIUM 75 MCG TABLET PO SCH (05:54)
[2017-02-22 06:13] LABS: BASOPHILS % (AUTO) 0.1 % (0.0-2.0); EOSINOPHILS % (AUTO) 5.4 % (1.0-6.0); HEMOGLOBIN 13.6 g/dL (12.0-16.0); LYMPHOCYTES # (AUTO) 2.3 K/uL (1.0-4.8); MEAN CORPUSCULAR HEMOGLOBIN 29.8 pg (26.0-34.0); MEAN CORPUSCULAR HGB CONC 32.3 G/dL (31.0-37.0); MEAN CORPUSCULAR VOLUME 92 fL (80-100); MONOCYTES % (AUTO) 10.9 % (2.0-9.0); NEUTROPHILS # (AUTO) 5.4 K/uL (1.8-7.7); NEUTROPHILS % (AUTO) 58.6 % (40.0-70.0); PLATELET COUNT (AUTO) 304 K/uL (150-450); RED BLOOD CELL COUNT(AUTO) 4.55 MIL/uL (4.00-5.20); RED CELL DISTRIBUTION WIDTH 20.5 % (11.5-14.5)
[2017-02-22 06:37] LABS: BILIRUBIN,TOTAL 0.2 mg/dL (0.1-1.0); CALCIUM, TOTAL 8.8 mg/dL (8.8-10.5); CREATININE 1.52 mg/dL (0.60-1.30); POTASSIUM 4.4 mmol/L (3.5-5.1); TOTAL PROTEIN, SERUM 6.6 g/dL (6.4-8.2)
[2017-02-22 07:39] VITALS: BP 141/92
[2017-02-22] MEDS: CARVEDILOL 25 MG TABLET PO SCH (07:47)
[2017-02-22] MEDS: DOCUSATE SODIUM 100 MG CAPSULE PO SCH (07:47)
[2017-02-22] MEDS: ISOSORBIDE MONONITRATE 60 MG ER TABLET PO SCH (07:47)
[2017-02-22] MEDS: LOSARTAN POTASSIUM 50 MG TABLET PO SCH (07:47)
[2017-02-22] MEDS: CLOPIDOGREL BISULFATE 75 MG TABLET PO SCH (07:47)
[2017-02-22] MEDS: QUEtiapine FUMARATE 25 MG TABLET PO SCH (07:47)
[2017-02-22] MEDS: HEPARIN SODIUM,PORCINE 5,000 UNITS/ML VIAL SQ SCH (07:47)
[2017-02-22] MEDS: NICOTINE 21 MG/24 HOUR PATCH TD SCH (07:48)
[2017-02-22] MEDS: ALLOPURINOL 300 MG TABLET PO SCH (07:48)
[2017-02-22] MEDS: POTASSIUM CHLORIDE 10 MEQ ER TABLET PO SCH (07:48)
[2017-02-22] MEDS: PANTOPRAZOLE SODIUM 40 MG/VIAL IVP SCH (07:48)
[2017-02-22 11:35] VITALS: BP 107/54
[2017-02-22 17:53] LABS: GLUCOMETER DEV NAME(LOC) 5N 1M; GLUCOSE,POINT OF CARE 161 MG/DL (70-110)
== END 2017-02-22 14:20 | disposition home or self-care (01) | DRG 194 ==
LOC: EMS 22:32 → AHU 02-19 01:20 → 5N 02-19 22:27
PROVIDERS: ADMIT Hospitalist; ATTEND Hospitalist
PROC: 3E0234Z Introduction of Serum, Toxoid and Vaccine into Muscle, Percutaneous Approach (ICD-10-PCS; principal; 2017-02-21)
DX: I11.0 Hypertensive heart disease with heart failure (principal); J96.00 Acute respiratory failure, unspecified whether with hypoxia or hypercapnia; J44.1 Chronic obstructive pulmonary disease with (acute) exacerbation; I50.23 Acute on chronic systolic (congestive) heart failure; E11.9 Type 2 diabetes mellitus without complications; E78.5 Hyperlipidemia, unspecified; E03.9 Hypothyroidism, unspecified; K21.9 Gastro-esophageal reflux disease without esophagitis; E78.00 Pure hypercholesterolemia, unspecified; F41.9 Anxiety disorder, unspecified; M10.9 Gout, unspecified; F17.210 Nicotine dependence, cigarettes, uncomplicated; Z86.73 Personal history of transient ischemic attack (TIA), and cerebral infarction without residual deficits; Z88.8 Allergy status to other drugs, medicaments and biological substances; Z79.899 Other long term (current) drug therapy; Z79.02 Long term (current) use of antithrombotics/antiplatelets; Z79.84 Long term (current) use of oral hypoglycemic drugs; Z71.6 Tobacco abuse counseling; Z23 Encounter for immunization; Z83.3 Family history of diabetes mellitus; Z82.5 Family history of asthma and other chronic lower respiratory diseases; Z82.49 Family history of ischemic heart disease and other diseases of the circulatory system
CPT/HCPCS: 82962; 90471; 93005; 93306; 94644; 96374; 99285; C9113; J1644; J1940

== ENCOUNTER 2017-02-25 11:54 | Emergency (ER) | payer OTHER ==
[~2017-02-25] VITALS: Ht 157.5 cm; Wt 106.8 kg
[2017-02-25 13:32] LABS: HEMATOCRIT 44.7 % (36-46); HEMOGLOBIN 14.4 g/dL (12.0-16.0); MEAN CORPUSCULAR HEMOGLOBIN 29.7 pg (26.0-34.0); MEAN CORPUSCULAR HGB CONC 32.1 G/dL (31.0-37.0); MEAN CORPUSCULAR VOLUME 92 fL (80-100); PLATELET COUNT (AUTO) 303 K/uL (150-450); RED BLOOD CELL COUNT(AUTO) 4.83 MIL/uL (4.00-5.20); RED CELL DISTRIBUTION WIDTH 19.4 % (11.5-14.5)
[2017-02-25 13:49] LABS: PROTHROMBIN TIME 10.6 SEC (9.4-11.6)
[2017-02-25 13:50] LABS: CALCIUM, TOTAL 9.4 mg/dL (8.8-10.5); CREATININE 1.84 mg/dL (0.60-1.30); POTASSIUM 4.4 mmol/L (3.5-5.1)
[2017-02-25 13:55] LABS: ALBUMIN 3.5 g/dL (3.4-5.0); BILIRUBIN,TOTAL 0.3 mg/dL (0.1-1.0); TOTAL PROTEIN, SERUM 7.6 g/dL (6.4-8.2)
[2017-02-25 14:17] LABS: BAND NEUTROPHILS % (MANUAL) 1 % (1-5); EOSINOPHILS % (MANUAL) 1 % (1-6); LYMPHOCYTES % (MANUAL) 15 % (22-44); MONOCYTES % (MANUAL) 6 % (2-9); SEGMENTED NEUTROPHILS % 77 % (40-70)
[2017-02-25 16:44] VITALS: BP 134/70
[2017-02-25] MEDS ORDERED: HYDROCODONE/ACETAMINOPHEN 10-325 MG TABLET PO ONE (16:45)
[2017-02-25] MEDS ORDERED: LIDOCAINE HCL/PF 1% 2 ML VIAL IM ONE (16:45)
[2017-02-25] MEDS ORDERED: CefTRIAXone SODIUM 1 GM/VIAL IM ONE (16:45)
[2017-02-25 17:32] LABS: APPEARANCE,URINE CLOUDY (CLEAR); BILIRUBIN,URINE NEGATIVE (NEGATIVE); GLUCOSE, URINE (UA) NEGATIVE (NEGATIVE); KETONES,URINE NEGATIVE (NEGATIVE); LEUKOCYTE ESTERASE ,URINE MODERATE (NEGATIVE); NITRATE,URINE NEGATIVE (NEGATIVE); OCCULT BLOOD,URINE LARGE (NEGATIVE); PROTEIN,URINE POS 1+ (NEGATIVE); UROBILINOGEN,URINE 0.2 mg/dL (<=1.0)
[2017-02-25 17:47] LABS: WBC,URINE 51-100 /HPF (0-5)
[2017-02-25 17:48] LABS: BACTERIA,URINE Few /HPF (None Seen); SQUAMOUS EPITHELIAL CELL,UR Few /LPF (None Seen)
== END 2017-02-25 17:16 | disposition home or self-care (01) ==
LOC: EMS 11:59
DX: R10.2 Pelvic and perineal pain (principal); N93.9 Abnormal uterine and vaginal bleeding, unspecified; E11.9 Type 2 diabetes mellitus without complications; I10 Essential (primary) hypertension; J44.9 Chronic obstructive pulmonary disease, unspecified; M10.9 Gout, unspecified; F17.210 Nicotine dependence, cigarettes, uncomplicated; Z71.6 Tobacco abuse counseling; Z88.8 Allergy status to other drugs, medicaments and biological substances; Z79.899 Other long term (current) drug therapy
CPT/HCPCS: 36415; 76856; 80053; 81001; 85025; 85610; 85730; 87077; 87086; 87186; 96372; 99285; 99406; J0696; J3490

== ENCOUNTER 2017-03-08 16:59 | Inpatient (IN) | payer OTHER ==
[~2017-03-08] VITALS: Ht 157.5 cm; Wt 97.7 kg
[2017-03-08 17:18] LABS: GLUCOSE,POINT OF CARE 78 MG/DL (70-110)
[2017-03-08] MEDS ORDERED: LORazepam 2 MG/ML VIAL IM ONE ×2 (17:30→18:15)
[2017-03-08 17:54] LABS: HEMATOCRIT 45.6 % (36-46); HEMOGLOBIN 14.8 g/dL (12.0-16.0); LYMPHOCYTES # (AUTO) 1.7 K/uL (1.0-4.8); LYMPHOCYTES % (AUTO) 15.3 % (22.0-44.0); MEAN CORPUSCULAR HEMOGLOBIN 29.7 pg (26.0-34.0); MEAN CORPUSCULAR HGB CONC 32.4 G/dL (31.0-37.0); MEAN CORPUSCULAR VOLUME 92 fL (80-100); MONOCYTES # (AUTO) 0.3 K/uL (0.1-1.0); MONOCYTES % (AUTO) 2.5 % (2.0-9.0); NEUTROPHILS # (AUTO) 9.2 K/uL (1.8-7.7); NEUTROPHILS % (AUTO) 81.2 % (40.0-70.0); PLATELET COUNT (AUTO) 300 K/uL (150-450); RED BLOOD CELL COUNT(AUTO) 4.97 MIL/uL (4.00-5.20); RED CELL DISTRIBUTION WIDTH 19.7 % (11.5-14.5)
[2017-03-08 18:04] LABS: ANION GAP 9 mmol/L (8-16); CALCIUM, TOTAL 9.3 mg/dL (8.8-10.5); CARBON DIOXIDE 24 mmol/L (22-29); CHLORIDE 108 mmol/L (98-107); CREATININE 1.79 mg/dL (0.60-1.30); GLOMERULAR FILTR. RATE CALC 29 mL/min (>60); GLUCOSE,RANDOM 92 mg/dL (70-110); POTASSIUM 3.8 mmol/L (3.5-5.1); SODIUM SERUM 141 mmol/L (136-145); UREA NITROGEN, BLOOD 47 mg/dL (7-18)
[2017-03-08 18:10] LABS: PROTHROMBIN TIME 10.9 SEC (9.4-11.6)
[2017-03-08 18:12] LABS: TROPONIN I 0.13 ng/mL (0.00-0.05)
[2017-03-08 18:16] LABS: AMMONIA < 10 umol/L (11-32)
[2017-03-08 18:17] LABS: SALICYLATE 3.3 mg/dL (2.8-20.0)
[2017-03-08 18:27] LABS: B-TYPE NATRIURETIC PEPTIDE 523 pg/mL (0-100)
[2017-03-08 18:30] LABS: ALANINE AMINOTRANSFERASE 30 U/L (12-78); ALKALINE PHOSPHATASE 70 U/L (46-116); ASPARTATE AMINOTRANSFERASE 34 U/L (15-37); BILIRUBIN,TOTAL 0.8 mg/dL (0.1-1.0); CREATINE KINASE, TOTAL 401 U/L (26-192); TOTAL PROTEIN, SERUM 7.3 g/dL (6.4-8.2)
[2017-03-08 18:37] LABS: ACETAMINOPHEN < 2 mcg/mL (10-30)
[2017-03-08 19:24] LABS: AMPHET/METH SCREEN,URINE POSITIVE (NEGATIVE); BARBITURATE SCREEN, URINE NEGATIVE (NEGATIVE); BENZODIAZEPINES SCREEN,URINE NEGATIVE (NEGATIVE); CANNABINOID SCREEN,URINE NEGATIVE (NEGATIVE); COCAINE SCREEN,URINE NEGATIVE (NEGATIVE); METHADONE SCREEN, URINE NEGATIVE (NEGATIVE); OPIATE SCREEN,URINE POSITIVE (NEGATIVE)
[2017-03-08 19:27] LABS: PHENCYCLIDINE SCREEN,URINE NEGATIVE (NEGATIVE)
[2017-03-08] MEDS ORDERED: MORPHINE SULFATE 4 MG/ML SYRINGE IVP ONE (19:30)
[2017-03-08 19:42] LABS: APPEARANCE,URINE CLEAR (CLEAR); GLUCOSE, URINE (UA) NEGATIVE (NEGATIVE); KETONES,URINE NEGATIVE (NEGATIVE); LEUKOCYTE ESTERASE ,URINE NEGATIVE (NEGATIVE); NITRATE,URINE NEGATIVE (NEGATIVE); OCCULT BLOOD,URINE NEGATIVE (NEGATIVE); PH,URINE 5.5 (5.0-8.0); PROTEIN,URINE SEE CONFIRM (NEGATIVE); UROBILINOGEN,URINE 0.2 mg/dL (<=1.0)
[2017-03-08 19:57] LABS: BILIRUBIN,URINE PRELIM. POSITIVE (NEGATIVE)
[2017-03-08 20:01] LABS: SULFOSALICYLIC ACID,URINE 2+ (Negative)
[2017-03-08 20:02] LABS: BACTERIA,URINE Rare /HPF (None Seen); RBC,URINE 0-2 /HPF (0-2); SQUAMOUS EPITHELIAL CELL,UR Few /LPF (None Seen); WBC,URINE 0-2 /HPF (0-5)
[2017-03-08] MEDS ORDERED: DiphenhydrAMINE HCL 50 MG/ML VIAL IVP ONE (20:15)
[2017-03-08] MEDS ORDERED: LORazepam 2 MG/ML VIAL IVP ONE ×2 (21:30→22:00)
[2017-03-09] MEDS ORDERED: BISACODYL 10 MG RECTAL RECTAL SUPPOSITORY PR PRN (00:30)
[2017-03-09] MEDS ORDERED: MAGNESIUM SULFATE 2 GM in DEXTROSE 5%-WATER 50 ML IV PRN (00:30)
[2017-03-09] MEDS ORDERED: POTASSIUM CHL 10 MEQ/WATER 50 ML IV PRN (00:30)
[2017-03-09] MEDS ORDERED: ZOLPIDEM TARTRATE 5 MG TABLET PO PRN (00:30)
[2017-03-09] MEDS ORDERED: MAGNESIUM OXIDE 400 MG TABLET PO PRN (00:30)
[2017-03-09] MEDS ORDERED: IPRATROPIUM BROMIDE 0.5 MG/2.5 ML NEB SOLUTION NEB PRN (00:30)
[2017-03-09] MEDS ORDERED: ONDANSETRON HCL 4 MG/2 ML VIAL IVP PRN (00:30)
[2017-03-09] MEDS ORDERED: ACETAMINOPHEN 325 MG TABLET PO PRN (00:30)
[2017-03-09] MEDS ORDERED: MAGNESIUM HYDROXIDE SUSPENSION 30 ML UDCUP PO PRN (00:30)
[2017-03-09] MEDS ORDERED: ALBUTEROL SULFATE 2.5 MG/0.5 ML NEB SOLUTION NEB PRN (00:30)
[2017-03-09] MEDS ORDERED: MAGNESIUM SULFATE 4 GM/WATER 100 ML IV PRN (00:30)
[2017-03-09] MEDS ORDERED: POTASSIUM CHLORIDE 20 MEQ ER TABLET PO PRN (00:30)
[2017-03-09] MEDS ORDERED: DiphenhydrAMINE HCL 50 MG/ML VIAL IVP ONE (00:45)
[2017-03-09] MEDS: OxyCODONE HCL/ACETAMINOPHEN 5-325 MG TABLET PO PRN ×2 (03:54→10:00)
[2017-03-09 04:30] VITALS: BP 140/80
[2017-03-09] MEDS ORDERED: GlipiZIDE 5 MG TABLET PO SCH (06:30)
[2017-03-09] MEDS ORDERED: LEVOTHYROXINE SODIUM 88 MCG TABLET PO SCH (06:30)
[2017-03-09 07:22] LABS: GLUCOSE,POINT OF CARE 77 MG/DL (70-110)
[2017-03-09 08:00] VITALS: BP 150/92
[2017-03-09] MEDS ORDERED: CLOPIDOGREL BISULFATE 75 MG TABLET PO SCH (09:00)
[2017-03-09] MEDS ORDERED: QUEtiapine FUMARATE 25 MG TABLET PO SCH (09:00)
[2017-03-09] MEDS ORDERED: CARVEDILOL 25 MG TABLET PO SCH (09:00)
[2017-03-09] MEDS ORDERED: FUROSEMIDE 40 MG TABLET PO SCH (09:00)
[2017-03-09] MEDS ORDERED: ISOSORBIDE MONONITRATE 60 MG ER TABLET PO SCH (09:00)
[2017-03-09] MEDS ORDERED: SIMVASTATIN 40 MG TABLET PO SCH (09:00)
[2017-03-09] MEDS ORDERED: DOCUSATE SODIUM 100 MG CAPSULE PO SCH (09:00)
[2017-03-09] MEDS ORDERED: HEPARIN SODIUM,PORCINE 5,000 UNITS/ML VIAL SQ SCH (09:00)
[2017-03-09] MEDS ORDERED: LOSARTAN POTASSIUM 50 MG TABLET PO SCH (09:00)
[2017-03-09] MEDS ORDERED: ALLOPURINOL 300 MG TABLET PO SCH (09:00)
[2017-03-09 12:00] VITALS: BP 106/60
[2017-03-09] MEDS ORDERED: MONTELUKAST SODIUM 10 MG TABLET PO SCH (21:00)
[2017-03-09] MEDS ORDERED: ATORVASTATIN CALCIUM 20 MG TABLET PO SCH (21:00)
[2017-03-09] MEDS ORDERED: DiphenhydrAMINE HCL 50 MG CAPSULE PO SCH (21:00)
== END 2017-03-09 16:35 | disposition home or self-care (01) | DRG 469 ==
LOC: EMS 17:01 → AHU 03-09 03:30
PROVIDERS: ADMIT Internal Medicine; ATTEND Internal Medicine
DX: N17.9 Acute kidney failure, unspecified (principal); G93.41 Metabolic encephalopathy; E11.22 Type 2 diabetes mellitus with diabetic chronic kidney disease; I49.5 Sick sinus syndrome; I50.9 Heart failure, unspecified; I13.0 Hypertensive heart and chronic kidney disease with heart failure and stage 1 through stage 4 chronic kidney disease, or unspecified chronic kidney disease; E66.01 Morbid (severe) obesity due to excess calories; E03.9 Hypothyroidism, unspecified; E78.00 Pure hypercholesterolemia, unspecified; E78.5 Hyperlipidemia, unspecified; F15.129 Other stimulant abuse with intoxication, unspecified; I25.10 Atherosclerotic heart disease of native coronary artery without angina pectoris; J44.9 Chronic obstructive pulmonary disease, unspecified; K21.9 Gastro-esophageal reflux disease without esophagitis; N18.9 Chronic kidney disease, unspecified; F17.210 Nicotine dependence, cigarettes, uncomplicated; F19.10 Other psychoactive substance abuse, uncomplicated; F32.9 Major depressive disorder, single episode, unspecified; F41.9 Anxiety disorder, unspecified; M10.9 Gout, unspecified; Z88.8 Allergy status to other drugs, medicaments and biological substances; Z95.0 Presence of cardiac pacemaker; Z86.73 Personal history of transient ischemic attack (TIA), and cerebral infarction without residual deficits; Z79.4 Long term (current) use of insulin; Z79.899 Other long term (current) drug therapy; Z68.39 Body mass index [BMI] 39.0-39.9, adult
CPT/HCPCS: 70450; 82962; 93005; 93306; 94640; G0480; G0481; J1200; J1644; J2060; J2270